=== PATIENT | male | born 1995 | race Caucasian/White ===

== ENCOUNTER 2022-01-20 13:00 | Outpatient (RCR) | payer OTHER, SELFPAY ==
--- NOTE | 2021-11-25 17:37 | PT.OIE ---
Current Diagnoses Malignant neoplasm of brain, unspecified (11/25/21) Visit Care Team Role Provider Type Sriram Bacon MD Attending Provider Non-Staff Family Provider Primary Care Provider Referring Provider Specialty: Medical Address: [facility], [address] [place] [address], [id number] Email: Physical Therapy Initial Evaluation PT-OP-A Visit Information Start: 11/24/21 08:34 Freq: Status: Active Protocol: Document 11/25/21 16:00 AW (Rec: 11/24/21 08:40 AW [id number]) Out-Patient Physical Therapy Visit Information Visit Information Visit Type Initial Evaluation Visit Start Time 15:15 Visit Stop Time 16:00 Total Visit Minutes 45 Visit Number 10/05 Number of 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 His gave to their second child in early September 2021. She had COVID at the time and Vinay contracted COVID soon after. He had a seizure at home in that time frame and does not recall the details. He was taken to [facility] by EMS. Brain imaging revealed a mass. Vinay was transported to [facility] but was admitted for observation only since he was still COVID positive. He went home and awaited surgery. He had right frontal lobe tumor resection on and discharged home on 10/14/21. He has not had any rehab. He has a lifting restriction of 10 pounds and he is not cleared to drive. Radiation was not recommended due to pt's age. Vinay notices he has been losing his balance since surgery. He has been close to falling a few times but has been able to catch himself. Attention and short-term memory seem challenged. He reports some visual and auditory hallucinations since surgery (last was 3 weeks ago) . He hears clicking 24/7 along the midline of his face. He has occasional blurry vision with a cloudy or smoky effect. He has tinnitus which is chronic but increased since surgery. He lives in [place] with his and their 2 children (22 months and 3 months) Today was his first day back to work. He is working full shifts but is on limited light duty. He played left tackle in high school and one year in college. He now enjoys golf and hopes to be able to golf soon. Future Testing and Treatments Planned 12/15/21 follow up with neurosurgery. CT at [facility] Treatment Goals Patient/Caregiver Goals Improve balance. Be able to golf 18 rounds. 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 Mentally demanding. Current Functional Impairments (Reported) Functional Limitations- Recreation/ Limited by neurosurgeon to Hobbies lifting 10 pounds. Difficulty with attention, organization, processing. PT-OP-C Subjective Start: 11/24/21 08:34 Freq: Status: Active Protocol: Document 11/25/21 16:00 AW (Rec: 11/25/21 17:45 AW [id number]) Patient Questionnaires ABC- Activity Specific Balance Confidence Scale ABC Score 79 ABC Functional Impairment 20 to <40% Impaired (Score 61- 80) Other Questionnaire Name and Score FACIT-F: 9 OP-PT Pain Assessment Pain Assessment Grid Paper Pain Assessment Grid Completed Yes: Scanned to EMR PT-OP-D Balance Start: 11/24/21 08:34 Freq: Status: Active Protocol: Document 11/25/21 16:00 AW (Rec: 11/25/21 17:51 AW [id number]) Balance Tests mCTSIB mCTSIB Position 1 30 mCTSIB Position 2 30 mCTSIB Position 3 27 mCTSIB Position 4 10 PT-OP-E Functional Tests Start: 11/24/21 08:34 Freq: Status: Active Protocol: Document 11/25/21 16:00 AW (Rec: 11/25/21 17:51 AW [id number]) Functional Tests Functional Gait Assessment Score 27 Functional Gait Assessment Impairment 1 to <20% Impaired (Score 25- Rating 29) PT-OP-H Neuro Start: 11/24/21 08:34 Freq: Status: Active Protocol: Document 11/25/21 16:00 AW (Rec: 11/25/21 17:51 AW [id number]) Sensation Evaluation Gross Sensation Gross Sensation WNL Coordination Evaluation Comments Coordination Comments All coordination testing WNL. Deep Tendon Reflex & Clonus Assessment Deep Tendon Reflex Bilateral Achilles Deep Tendon Reflex 2+ Normal Bilateral Patellar Deep Tendon Reflex 2+ Normal PT-OP-M Strength Start: 11/24/21 08:34 Freq: Status: Active Protocol: Document 11/25/21 16:00 AW (Rec: 11/25/21 17:51 AW [id number]) Hip Strength Hip Manual Muscle Testing bilat Flexion (L2) 5 Normal Extension (S1) 4+ Good+ Abduction 4+ Good+ External Rotation 5 Normal Internal Rotation 5 Normal Knee Strength Knee Manual Muscle Testing Right Flexion (S2) 5 Normal Extension (L3) 4+ Good+ Comments Pt reports right knee pain Left Flexion (S2) 5 Normal Extension (L3) 5 Normal Ankle/Foot Strength Ankle and Foot Manual Muscle Testing bilat Dorsiflexion (L4) 5 Normal Plantarflexion (S1) 5 Normal Inversion 5 Normal Eversion (S1) 5 Normal Toe Strength Toe Manual Muscle Testing Great Toe Flexion 5 Normal Extension 5 Normal PT-OP-O Vestibular Start: 11/24/21 08:34 Freq: Status: Active Protocol: Document 11/25/21 16:00 AW (Rec: 11/25/21 17:51 AW [id number]) Vestibular Assessment Visual Testing Smooth Pursuits Horizontal WNL Smooth Pursuits Vertical WNL Gaze Evoked Nystagmus With Fixation Negative Gaze Evoked Nystagmus Without Fixation Negative Thrust Head Positive Bilateral Cover/Uncover Test WNL Convergence Test WNL Comments Vestibular Comments Positive head thrust bilaterally and pt limited to 50 bpm head turning on gaze stabillization. PT-OP-Q Treatments Start: 11/24/21 08:34 Freq: Status: Active Protocol: Document 11/25/21 16:00 AW (Rec: 11/25/21 17:55 AW [id number]) Neuro Re-Education Treatment Vestibular Rehabilitation seated gaze stab Details seated gaze stabilization wtih head turns Distance From Target arm's length Speed 50 bpm Position seated Reps/Duration 30 seconds each Comments HEP Self-Care/Home Management Treatment Education Other Education Educated pt on balance inputs and systems integration. Explained exam findings and proposed plan of care with pt agreeable. Assigned seated gaze stab with head turns for HEP. PT-OP-T Assessment and Plan Start: 11/24/21 08:34 Freq: Status: Active Protocol: Document 11/25/21 16:00 AW (Rec: 11/25/21 17:59 AW [id number]) Physical Therapy Assessment Rehab Potential Rehabilitation Potential Good Evaluation Complexity Number of Personal Factors/Comorbidities 1-2 Number of Body Systems Impaired 3 Clinical Presentation at Evaluation Evolving Impairments Impairments Balance,Functional Activities, Vestibular Other Concerns Fall Risk low per FGA score 27/30 Goals Four Impairment VOR Care Home Goal (LTG) Pt will demonstrate gaze stabilization with head rotation at a rate of 2 Hz as a measure of improved vestibulo-ocular reflex to improve overall balance. LTG Duration 8 weeks - 01/20/22 Three Impairment ABC scale Care Home Goal (LTG) Pt will improve ABC score from 79% to 90% or greater as a measure of improved balance and self-efficacy. 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 Pt reports disturbed senses including hearing clicking in midline face and occasional cloudy or smoky vision. He has had some visual and auditory hallucinations since surgery. His pre- existing tinnitus has worsened . He scored 10 seconds on the fourth condition of mCTSIB. He had poor gaze stability with bilateral head thrust testing. He denies falls since surgery but does admit to losing balance and catching himself several times. Pt is expected to benefit from outpatient PT to address balance deficits, reduce risk of falls, and improve function at home and at work. Physical Therapy Plan Frequency and Duration Frequency of Treatment 1x/Week Duration of Treatment 8 weeks Plan of Care Start Date 11/25/21 Plan of Care End Date 01/20/22 Therapeutic Interventions Therapeutic Interventions Balance Training,Coordination Training,Home Exercise Program ,Neuromuscular Re-education, Self-Care/Home Management, Therapeutic Activities, Therapeutic Exercises, Vestibular Rehabilitation Other Referrals/Consults Referrals/Consults Recommended Pt may benefit from referral to speech therapy to assess cognition. Next Visit Focus/Plan Next Note Type Treatment Note Next Visit Plan Review HEP; initiate static and dynamic balance interventions
--- NOTE | 2021-11-25 17:38 | PT.OPPOC ---
Physical, Occupational & Speech Therapy At [facility] Current Diagnoses Malignant neoplasm of brain, unspecified (11/25/21) Visit Care Team Role Provider Type Sriram Bacon MD Attending Provider Non-Staff Family Provider Primary Care Provider Referring Provider Specialty: Medical Address: [address], [address] Email: Plan Of Care PT-OP-T Assessment and Plan Start: 11/24/21 08:34 Freq: Status: Active Protocol: Document 11/25/21 16:00 AW (Rec: 11/25/21 17:59 AW [id number]) Physical Therapy Assessment Rehab Potential Rehabilitation Potential Good Evaluation Complexity Number of Personal Factors/Comorbidities 1-2 Number of Body Systems Impaired 3 Clinical Presentation at Evaluation Evolving Impairments Impairments Balance,Functional Activities, Vestibular Other Concerns Fall Risk low per FGA score 27/30 Goals Four Impairment VOR Senior Living Goal (LTG) Pt will demonstrate gaze stabilization with head rotation at a rate of 2 Hz as a measure of improved vestibulo-ocular reflex to improve overall balance. LTG Duration 8 weeks - 01/20/22 Three Impairment ABC scale Senior Living Goal (LTG) Pt will improve ABC score from 79% to 90% or greater as a measure of improved balance and self-efficacy. 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 Pt reports disturbed senses including hearing clicking in midline face and occasional cloudy or smoky vision. He has had some visual and auditory hallucinations since surgery. His pre- existing tinnitus has worsened . He scored 10 seconds on the fourth condition of mCTSIB. He had poor gaze stability with bilateral head thrust testing. He denies falls since surgery but does admit to losing balance and catching himself several times. Pt is expected to benefit from outpatient PT to address balance deficits, reduce risk of falls, and improve function at home and at work. Physical Therapy Plan Frequency and Duration Frequency of Treatment 1x/Week Duration of Treatment 8 weeks Plan of Care Start Date 11/25/21 Plan of Care End Date 01/20/22 Therapeutic Interventions Therapeutic Interventions Balance Training,Coordination Training,Home Exercise Program ,Neuromuscular Re-education, Self-Care/Home Management, Therapeutic Activities, Therapeutic Exercises, Vestibular Rehabilitation Other Referrals/Consults Referrals/Consults Recommended Pt may benefit from referral to speech therapy to assess cognition. Next Visit Focus/Plan Next Note Type Treatment Note Next Visit Plan Review HEP; initiate static and dynamic balance interventions Plan of Care Dates Plan of Care Start Date 11/25/21 Plan of Care End Date 01/20/22 Electronically Signed by: Daniela Navarro, PT 11/26/21 [id number] Please Sign and Return: I have reviewed this Plan of Care and certify that the skilled therapy services above are required to meet the patient?s needs. Physician Signature Date Printed Name and Credentials Clinical Instructor Signature Printed Name and Credentials
--- NOTE | 2021-12-01 17:23 | PT.OTN ---
Current Diagnoses Malignant neoplasm of brain, unspecified (12/01/21) Physical Therapy Treatment Note PT-OP-A Visit Information Start: 11/24/21 08:34 Freq: Status: Active Protocol: Document 12/01/21 15:15 AW (Rec: 12/01/21 17:23 AW [id number]) Out-Patient Physical Therapy Visit Information Visit Information Visit Type Treatment Note Visit Start Time 15:15 Visit Stop Time 16:00 Total Visit Minutes 45 Visit Number 11/05 Number of CASTING ASSOCIATE Visits 0 Evaluation Information Evaluation Date 11/25/21 Precautions Precautions seizures, no lifting >10 pounds PT-OP-B Current Condition Start: 11/24/21 08:34 Freq: Status: Active Protocol: Document 11/25/21 16:00 AW (Rec: 11/24/21 08:40 AW [id number]) Current Condition History of Current Condition Onset Date 10/09/21 Current Complaints decreased balance s/p frontal lobe tumor (astrocytoma) resection History of Current Condition 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 She had COVID at the time and Vinay contracted COVID soon after. He had a seizure at home in that time frame and does not recall the details. He was taken to [facility] by EMS. Brain imaging revealed a mass. Vinay was transported to [facility] but was admitted for observation only since he was still COVID positive. He went home and awaited surgery. He had right frontal lobe tumor resection on and discharged home on 10/14/21. He has not had any rehab. He has a lifting restriction of 10 pounds and he is not cleared to drive. Radiation was not recommended due to pt's age. Vinay notices he has been losing his balance since surgery. He has been close to falling a few times but has been able to catch himself. Attention and short-term memory seem challenged. He reports some visual and auditory hallucinations since surgery (last was 3 weeks ago) . He hears clicking 24/7 along the midline of his face. He has occasional blurry vision with a cloudy or smoky effect. He has tinnitus which is chronic but increased since surgery. He lives in [place] with his and their 2 children (22 months and 3 months) Today was his first day back to work. He is working full shifts but is on limited light duty. He played left tackle in high school and one year in college. He now enjoys golf and hopes to be able to golf soon. Future Testing and Treatments Planned 12/15/21 follow up with neurosurgery. CT at [facility] Treatment Goals Patient/Caregiver Goals Improve balance. Be able to golf 18 rounds. 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 Mentally demanding. Current Functional Impairments (Reported) Functional Limitations- Recreation/ Limited by neurosurgeon to Hobbies lifting 10 pounds. Difficulty with attention, organization, processing. PT-OP-C Subjective Start: 11/24/21 08:34 Freq: Status: Active Protocol: Document 12/01/21 15:15 AW (Rec: 12/01/21 17:23 AW [id number]) OP-PT Subjective Patient Comments Patient Comments Will follow up with neurosurgeon on 12/15. Virtual appointment with oncology on . PT-OP-D Balance Start: 11/24/21 08:34 Freq: Status: Active Protocol: Document 11/25/21 16:00 AW (Rec: 11/25/21 17:51 AW [id number]) Balance Tests mCTSIB mCTSIB Position 1 30 mCTSIB Position 2 30 mCTSIB Position 3 27 mCTSIB Position 4 10 PT-OP-E Functional Tests Start: 11/24/21 08:34 Freq: Status: Active Protocol: Document 11/25/21 16:00 AW (Rec: 11/25/21 17:51 AW [id number]) Functional Tests Functional Gait Assessment Score 27 Functional Gait Assessment Impairment 1 to <20% Impaired (Score 25- Rating 29) PT-OP-H Neuro Start: 11/24/21 08:34 Freq: Status: Active Protocol: Document 11/25/21 16:00 AW (Rec: 11/25/21 17:51 AW [id number]) Sensation Evaluation Gross Sensation Gross Sensation WNL Coordination Evaluation Comments Coordination Comments All coordination testing WNL. Deep Tendon Reflex & Clonus Assessment Deep Tendon Reflex Bilateral Achilles Deep Tendon Reflex 2+ Normal Bilateral Patellar Deep Tendon Reflex 2+ Normal PT-OP-M Strength Start: 11/24/21 08:34 Freq: Status: Active Protocol: Document 11/25/21 16:00 AW (Rec: 11/25/21 17:51 AW [id number]) Hip Strength Hip Manual Muscle Testing bilat Flexion (L2) 5 Normal Extension (S1) 4+ Good+ Abduction 4+ Good+ External Rotation 5 Normal Internal Rotation 5 Normal Knee Strength Knee Manual Muscle Testing Right Flexion (S2) 5 Normal Extension (L3) 4+ Good+ Comments Pt reports right knee pain Left Flexion (S2) 5 Normal Extension (L3) 5 Normal Ankle/Foot Strength Ankle and Foot Manual Muscle Testing bilat Dorsiflexion (L4) 5 Normal Plantarflexion (S1) 5 Normal Inversion 5 Normal Eversion (S1) 5 Normal Toe Strength Toe Manual Muscle Testing Great Toe Flexion 5 Normal Extension 5 Normal PT-OP-O Vestibular Start: 11/24/21 08:34 Freq: Status: Active Protocol: Document 11/25/21 16:00 AW (Rec: 11/25/21 17:51 AW [id number]) Vestibular Assessment Visual Testing Smooth Pursuits Horizontal WNL Smooth Pursuits Vertical WNL Gaze Evoked Nystagmus With Fixation Negative Gaze Evoked Nystagmus Without Fixation Negative Thrust Head Positive Bilateral Cover/Uncover Test WNL Convergence Test WNL Comments Vestibular Comments Positive head thrust bilaterally and pt limited to 50 bpm head turning on gaze stabillization. PT-OP-Q Treatments Start: 11/24/21 08:34 Freq: Status: Active Protocol: Document 12/01/21 15:15 AW (Rec: 12/01/21 17:23 AW [id number]) Gym Equipment Shuttle Balance NBOS Details NBOS - red Reps/Duration 5 min Comments - WBOS EO and EC - NBOS EO and EC - NBOS EO with head turns, nods Therapeutic Exercises Standing Exercises gastroc stretch Standing Exercise Name gastroc stretch Equipment Used YASMINE Reps/Minutes after standing balance activities Other Exercises sit to stand Other Exercise Name sit to stand Reps/Minutes 2x10 - 2nd set with foam under feet Comments focus weight shift, balance Neuro Re-Education Treatment Balance Activities SLS Details SLS Surface firm Equipment rail support prn Comments HEP tandem Details tandem stance Surface firm, foam Equipment 2 airex pads Comments - EO with head turns, nods on firm and foam - EC with head turns, nods on firm and foam NBOS Details NBOS Surface firm, foam Equipment 2 blue foam Comments - EO with head turns, nods on firm and foam - EC with head turns, nods on firm and foam Vestibular Rehabilitation VOR cancellation Details VOR cancellation Distance From Target arm's length Speed 65 bpm Position seated Comments HEP seated gaze stab Details seated gaze stabilization with head turns Distance From Target arm's length Speed 65 bpm Position seated Reps/Duration 30 seconds each Comments HEP review; improved speed this week; attempted 75 bpm but letters were blurry Self-Care/Home Management Treatment Education Patient Education Home Exercise Program Other Education Added seated VOR cx, tandem stance with head turns, and SLS to HEP PT-OP-T Assessment and Plan Start: 11/24/21 08:34 Freq: Status: Active Protocol: Document 12/01/21 15:15 AW (Rec: 12/01/21 17:23 AW [id number]) Physical Therapy Assessment Goals Four Impairment VOR Assisted Goal (LTG) Pt will demonstrate gaze stabilization with head rotation at a rate of 2 Hz as a measure of improved vestibulo-ocular reflex to improve overall balance. LTG Duration 8 weeks - 01/20/22 Three Impairment ABC scale Furniture Installer Goal (LTG) Pt will improve ABC score from 79% to 90% or greater as a measure of improved balance and self-efficacy. LTG Duration 8 weeks - 01/20/22 Two Impairment balance Furniture Installer Goal (LTG) Pt will improve his mCTSIB score to 110 or greater as a measure of improved balance LTG Duration 8 weeks - 01/20/22 One Impairment lacks HEP Short Term Goal (STG) Pt will be instructed in HEP for balance to support therapy services provided in clinic STG Duration 4 weeks - 12/23/21 Assisted Goal (LTG) Pt will be independent [facility] for balance LTG Duration 8 weeks - 01/20/22 Assessment Summary Assessment Vinay shows good effort with all balance activities and is receptive to education. Added balance and vestibular work to HEP and will reassess at next visit. Sent request for speech therapy referral to pt' s physician. Physical Therapy Plan Frequency and Duration Frequency of Treatment 1x/Week Duration of Treatment 8 weeks Plan of Care Start Date 11/25/21 Plan of Care End Date 01/20/22 Therapeutic Interventions Therapeutic Interventions Balance Training,Coordination Training,Home Exercise Program ,Neuromuscular Re-education, Self-Care/Home Management, Therapeutic Activities, Therapeutic Exercises, Vestibular Rehabilitation Other Referrals/Consults Referrals/Consults Recommended Pt may benefit from referral to speech therapy to assess cognition. Next Visit Focus/Plan Next Note Type Treatment Note Next Visit Plan Review HEP; increase challenge in sit to stand, SLS. Consider core stab in sitting and standing. Consider agility work to improve balance.
--- NOTE | 2021-12-10 12:20 | PT.OTN ---
Current Diagnoses Malignant neoplasm of brain, unspecified (12/10/21) Physical Therapy Treatment Note PT-OP-A Visit Information Start: 11/24/21 08:34 Freq: Status: Active Protocol: Document 12/10/21 09:44 AW (Rec: 12/10/21 10:47 AW [id number]) Out-Patient Physical Therapy Visit Information Visit Information Visit Type Treatment Note Visit Start Time 09:45 Visit Stop Time 10:15 Total Visit Minutes 45 Visit Number 12/03 Evaluation Information Evaluation Date 11/25/21 Precautions Precautions seizures, no lifting >10 pounds PT-OP-B Current Condition Start: 11/24/21 08:34 Freq: Status: Active Protocol: Document 11/25/21 16:00 AW (Rec: 11/24/21 08:40 AW [id number]) Current Condition History of Current Condition Onset Date 10/09/21 Current Complaints decreased balance s/p frontal lobe tumor (astrocytoma) resection History of Current Condition 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 His gave to their second child in early September 2021. She had COVID at the time and Vinay contracted COVID soon after. He had a seizure at home in that time frame and does not recall the details. He was taken to [facility] by EMS. Brain imaging revealed a mass. Vinay was transported to [facility] but was admitted for observation only since he was still COVID positive. He went home and awaited surgery. He had right frontal lobe tumor resection on and discharged home on 10/14/21. He has not had any rehab. He has a lifting restriction of 10 pounds and he is not cleared to drive. Radiation was not recommended due to pt's age. Vinay notices he has been losing his balance since surgery. He has been close to falling a few times but has been able to catch himself. Attention and short-term memory seem challenged. He reports some visual and auditory hallucinations since surgery (last was 3 weeks ago) . He hears clicking 24/7 along the midline of his face. He has occasional blurry vision with a cloudy or smoky effect. He has tinnitus which is chronic but increased since surgery. He lives in [place] with his and their 2 children (22 months and 3 months) Today was his first day back to work. He is working full shifts but is on limited light duty. He played left tackle in high school and one year in college. He now enjoys golf and hopes to be able to golf soon. Future Testing and Treatments Planned 12/15/21 follow up with neurosurgery. CT at [facility] Treatment Goals Patient/Caregiver Goals Improve balance. Be able to golf 18 rounds. 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 Mentally demanding. Current Functional Impairments (Reported) Functional Limitations- Recreation/ Limited by neurosurgeon to Hobbies lifting 10 pounds. Difficulty with attention, organization, processing. PT-OP-C Subjective Start: 11/24/21 08:34 Freq: Status: Active Protocol: Document 12/10/21 09:44 AW (Rec: 12/10/21 10:47 AW [id number]) OP-PT Subjective Patient Comments Patient Comments Symptoms of microseizures noted recently: spacing out, stopping mid-task, hand tremors, HR spikes to 115 during tremors. Pt has been in touch with providers at [facility]. He has doubled his Keppra dose and notices increased fatigue. Follows up with oncology today and with neurosurgeon on 12/15. PT-OP-D Balance Start: 11/24/21 08:34 Freq: Status: Active Protocol: Document 11/25/21 16:00 AW (Rec: 11/25/21 17:51 AW [id number]) Balance Tests mCTSIB mCTSIB Position 1 30 mCTSIB Position 2 30 mCTSIB Position 3 27 mCTSIB Position 4 10 PT-OP-E Functional Tests Start: 11/24/21 08:34 Freq: Status: Active Protocol: Document 11/25/21 16:00 AW (Rec: 11/25/21 17:51 AW [id number]) Functional Tests Functional Gait Assessment Score 27 Functional Gait Assessment Impairment 1 to <20% Impaired (Score 25- Rating 29) PT-OP-H Neuro Start: 11/24/21 08:34 Freq: Status: Active Protocol: Document 11/25/21 16:00 AW (Rec: 11/25/21 17:51 AW [id number]) Sensation Evaluation Gross Sensation Gross Sensation WNL Coordination Evaluation Comments Coordination Comments All coordination testing WNL. Deep Tendon Reflex & Clonus Assessment Deep Tendon Reflex Bilateral Achilles Deep Tendon Reflex 2+ Normal Bilateral Patellar Deep Tendon Reflex 2+ Normal PT-OP-M Strength Start: 11/24/21 08:34 Freq: Status: Active Protocol: Document 11/25/21 16:00 AW (Rec: 11/25/21 17:51 AW [id number]) Hip Strength Hip Manual Muscle Testing bilat Flexion (L2) 5 Normal Extension (S1) 4+ Good+ Abduction 4+ Good+ External Rotation 5 Normal Internal Rotation 5 Normal Knee Strength Knee Manual Muscle Testing Right Flexion (S2) 5 Normal Extension (L3) 4+ Good+ Comments Pt reports right knee pain Left Flexion (S2) 5 Normal Extension (L3) 5 Normal Ankle/Foot Strength Ankle and Foot Manual Muscle Testing bilat Dorsiflexion (L4) 5 Normal Plantarflexion (S1) 5 Normal Inversion 5 Normal Eversion (S1) 5 Normal Toe Strength Toe Manual Muscle Testing Great Toe Flexion 5 Normal Extension 5 Normal PT-OP-O Vestibular Start: 11/24/21 08:34 Freq: Status: Active Protocol: Document 11/25/21 16:00 AW (Rec: 11/25/21 17:51 AW [id number]) Vestibular Assessment Visual Testing Smooth Pursuits Horizontal WNL Smooth Pursuits Vertical WNL Gaze Evoked Nystagmus With Fixation Negative Gaze Evoked Nystagmus Without Fixation Negative Thrust Head Positive Bilateral Cover/Uncover Test WNL Convergence Test WNL Comments Vestibular Comments Positive head thrust bilaterally and pt limited to 50 bpm head turning on gaze stabillization. PT-OP-Q Treatments Start: 11/24/21 08:34 Freq: Status: Active Protocol: Document 12/10/21 09:44 AW (Rec: 12/10/21 10:47 AW [id number]) Therapeutic Exercises Standing Exercises lateral band walk Standing Exercise Name lateral band walk Side bilateral Resistance red loop Comments HEP - issued TB3 for loop Other Exercises sit to stand Other Exercise Name sit to stand Reps/Minutes 3x10 - 2nd set with foam under feet Comments firm surface, foam, rocker board Neuro Re-Education Treatment Balance Activities dynamic gait Details dynamic gait Surface firm Reps/Duration 100' x 10 Comments - head turns - head nods - tandem walking - backward walking SLS Details SLS Surface firm Equipment rail support prn Comments HEP tandem Details tandem stance Surface firm, foam Equipment 2 airex pads Comments - EO with head turns, nods on firm and foam - EC with head turns, nods on firm and foam Coordination Activities grapevine Details grapevine Reps/Duration 20' lap x 8 Comments Pt able to increase speed without pattern degradation Vestibular Rehabilitation VOR cancellation Details VOR cancellation Distance From Target arm's length Speed 70 bpm Position seated Comments HEP seated gaze stab Details seated gaze stabilization with head turns Distance From Target arm's length Speed 70 bpm Position seated Reps/Duration 30 seconds each Comments -70 ok - attempted 75 bpm but letters were blurry Self-Care/Home Management Treatment Education Patient Education Home Exercise Program Other Education Added lateral band walk to HEP to address hip drop in gait and SLS PT-OP-T Assessment and Plan Start: 11/24/21 08:34 Freq: Status: Active Protocol: Document 12/10/21 09:44 AW (Rec: 12/10/21 10:47 AW [id number]) Physical Therapy Assessment Goals Four Impairment VOR Residential Goal (LTG) Pt will demonstrate gaze stabilization with head rotation at a rate of 2 Hz as a measure of improved vestibulo-ocular reflex to improve overall balance. LTG Duration 8 weeks - 01/20/22 Three Impairment ABC scale Residential Goal (LTG) Pt will improve ABC score from 79% to 90% or greater as a measure of improved balance and self-efficacy. LTG Duration 8 weeks - 01/20/22 Two Impairment balance Stringed Instrument Repairer Goal (LTG) Pt will improve his mCTSIB score to 110 or greater as a measure of improved balance LTG Duration 8 weeks - 01/20/22 One Impairment lacks HEP Short Term Goal (STG) Pt will be instructed in HEP for balance to support therapy services provided in clinic STG Duration 4 weeks - 12/23/21 Residential Goal (LTG) Pt will be independent [facility] HEP for balance LTG Duration 8 weeks - 01/20/22 Assessment Summary Assessment Vinay presents with concerns for recent microseizure activity. He has doubled his Keppra dosage at the direction of providers at [facility]. No neuro symptoms noted during treatment today which focused on dynamic balance and coordination. Will plan to add cognitive load to dynamic balance activities at next visit. Will follow up on referral for speech therapy. Physical Therapy Plan Frequency and Duration Frequency of Treatment 1x/Week Duration of Treatment 8 weeks Plan of Care Start Date 11/25/21 Plan of Care End Date 01/20/22 Therapeutic Interventions Therapeutic Interventions Balance Training,Coordination Training,Home Exercise Program ,Neuromuscular Re-education, Self-Care/Home Management, Therapeutic Activities, Therapeutic Exercises, Vestibular Rehabilitation Other Referrals/Consults Referrals/Consults Recommended Spoke with Dr. Bacon who initiated speech referral. Next Visit Focus/Plan Next Note Type Treatment Note Next Visit Plan Review HEP; increase challenge in sit to stand, SLS. Progress core stab in sitting and standing. Consider agility work to improve balance. Add cognitive load and dual task to dynamic balance work.
--- NOTE | 2021-12-31 15:13 | PT.OTN ---
Current Diagnoses Malignant neoplasm of brain, unspecified (12/31/21) Physical Therapy Treatment Note PT-OP-A Visit Information Start: 11/24/21 08:34 Freq: Status: Active Protocol: Document 12/31/21 14:30 DCW (Rec: 12/31/21 15:13 DCW [id number]) Out-Patient Physical Therapy Visit Information Visit Information Visit Type Treatment Note Visit Start Time 14:30 Visit Stop Time 15:15 Total Visit Minutes 45 Visit Number 01/03 Number of INFANT TEACHER Visits 0 Evaluation Information Evaluation Date 11/25/21 Precautions Precautions seizures, no lifting >10 pounds PT-OP-B Current Condition Start: 11/24/21 08:34 Freq: Status: Active Protocol: Document 11/25/21 16:00 AW (Rec: 11/24/21 08:40 AW [id number]) Current Condition History of Current Condition Onset Date 10/09/21 Current Complaints decreased balance s/p frontal lobe tumor (astrocytoma) resection History of Current Condition 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 She had COVID at the time and Vinay contracted COVID soon after. He had a seizure at home in that time frame and does not recall the details. He was taken to [facility] by EMS. Brain imaging revealed a mass. Vinay was transported to [facility] but was admitted for observation only since he was still COVID positive. He went home and awaited surgery. He had right frontal lobe tumor resection on and discharged home on 10/14/21. He has not had any rehab. He has a lifting restriction of 10 pounds and he is not cleared to drive. Radiation was not recommended due to pt's age. Vinay notices he has been losing his balance since surgery. He has been close to falling a few times but has been able to catch himself. Attention and short-term memory seem challenged. He reports some visual and auditory hallucinations since surgery (last was 3 weeks ago) . He hears clicking 24/7 along the midline of his face. He has occasional blurry vision with a cloudy or smoky effect. He has tinnitus which is chronic but increased since surgery. He lives in [place] with his and their 2 children (22 months and 3 months) Today was his first day back to work. He is working full shifts but is on limited light duty. He played left tackle in high school and one year in college. He now enjoys golf and hopes to be able to golf soon. Future Testing and Treatments Planned 12/15/21 follow up with neurosurgery. CT at [facility] Treatment Goals Patient/Caregiver Goals Improve balance. Be able to golf 18 rounds. 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 Mentally demanding. Current Functional Impairments (Reported) Functional Limitations- Recreation/ Limited by neurosurgeon to Hobbies lifting 10 pounds. Difficulty with attention, organization, processing. PT-OP-C Subjective Start: 11/24/21 08:34 Freq: Status: Active Protocol: Document 12/31/21 14:30 DCW (Rec: 12/31/21 15:13 DCW [id number]) OP-PT Subjective Patient Comments Patient Comments Upped Kepra, not noticing microseizures as much any more , balance seems to be improving, trying to take it one day at a time. Will be getting a new MRI February 18. PT-OP-D Balance Start: 11/24/21 08:34 Freq: Status: Active Protocol: Document 11/25/21 16:00 AW (Rec: 11/25/21 17:51 AW [id number]) Balance Tests mCTSIB mCTSIB Position 1 30 mCTSIB Position 2 30 mCTSIB Position 3 27 mCTSIB Position 4 10 PT-OP-E Functional Tests Start: 11/24/21 08:34 Freq: Status: Active Protocol: Document 11/25/21 16:00 AW (Rec: 11/25/21 17:51 AW [id number]) Functional Tests Functional Gait Assessment Score 27 Functional Gait Assessment Impairment 1 to <20% Impaired (Score 25- Rating 29) PT-OP-H Neuro Start: 11/24/21 08:34 Freq: Status: Active Protocol: Document 11/25/21 16:00 AW (Rec: 11/25/21 17:51 AW [id number]) Sensation Evaluation Gross Sensation Gross Sensation WNL Coordination Evaluation Comments Coordination Comments All coordination testing WNL. Deep Tendon Reflex & Clonus Assessment Deep Tendon Reflex Bilateral Achilles Deep Tendon Reflex 2+ Normal Bilateral Patellar Deep Tendon Reflex 2+ Normal PT-OP-M Strength Start: 11/24/21 08:34 Freq: Status: Active Protocol: Document 11/25/21 16:00 AW (Rec: 11/25/21 17:51 AW [id number]) Hip Strength Hip Manual Muscle Testing bilat Flexion (L2) 5 Normal Extension (S1) 4+ Good+ Abduction 4+ Good+ External Rotation 5 Normal Internal Rotation 5 Normal Knee Strength Knee Manual Muscle Testing Right Flexion (S2) 5 Normal Extension (L3) 4+ Good+ Comments Pt reports right knee pain Left Flexion (S2) 5 Normal Extension (L3) 5 Normal Ankle/Foot Strength Ankle and Foot Manual Muscle Testing bilat Dorsiflexion (L4) 5 Normal Plantarflexion (S1) 5 Normal Inversion 5 Normal Eversion (S1) 5 Normal Toe Strength Toe Manual Muscle Testing Great Toe Flexion 5 Normal Extension 5 Normal PT-OP-O Vestibular Start: 11/24/21 08:34 Freq: Status: Active Protocol: Document 11/25/21 16:00 AW (Rec: 11/25/21 17:51 AW [id number]) Vestibular Assessment Visual Testing Smooth Pursuits Horizontal WNL Smooth Pursuits Vertical WNL Gaze Evoked Nystagmus With Fixation Negative Gaze Evoked Nystagmus Without Fixation Negative Thrust Head Positive Bilateral Cover/Uncover Test WNL Convergence Test WNL Comments Vestibular Comments Positive head thrust bilaterally and pt limited to 50 bpm head turning on gaze stabillization. PT-OP-Q Treatments Start: 11/24/21 08:34 Freq: Status: Active Protocol: Document 12/31/21 14:30 DCW (Rec: 12/31/21 15:13 DCW [id number]) Gym Equipment Shuttle Balance NBOS Details NBOS - red Reps/Duration 5 min Comments - WBOS EO and EC, head turns/ nods - Staggered Stance - Lateral weight shift Therapeutic Exercises Standing Exercises hip hiking Standing Exercise Name Hip hiking Side bilateral Neuro Re-Education Treatment Balance Activities dynamic gait Details dynamic gait Surface firm Reps/Duration 100' x 10 Comments - head turns - head nods - tandem walking - backward walking - eyes closed walking SLS Details SLS Surface firm Comments HEP tandem Details tandem stance Surface firm, foam Equipment 2 airex pads Comments - EO with head turns, nods on firm and foam - EC with head turns, nods on firm and foam NBOS Details NBOS Surface Blue BOSU Comments EO/EC Vestibular Rehabilitation seated gaze stab Details seated gaze stabilization with head turns Distance From Target arm's length Speed 70 bpm Position seated Reps/Duration 30 seconds each Comments -70 ok - attempted 75 bpm but letters were blurry PT-OP-T Assessment and Plan Start: 11/24/21 08:34 Freq: Status: Active Protocol: Document 12/31/21 14:30 DCW (Rec: 12/31/21 15:13 DCW [id number]) Physical Therapy Assessment Goals Four Impairment VOR Thermal Cutting Tracer Machine Operator Goal (LTG) Pt will demonstrate gaze stabilization with head rotation at a rate of 2 Hz as a measure of improved vestibulo-ocular reflex to improve overall balance. LTG Duration 8 weeks - 01/20/22 Three Impairment ABC scale Mcfp Goal (LTG) Pt will improve ABC score from 79% to 90% or greater as a measure of improved balance and self-efficacy. LTG Duration 8 weeks - 01/20/22 Two Impairment balance Thermal Cutting Tracer Machine Operator Goal (LTG) Pt will improve his mCTSIB score to 110 or greater as a measure of improved balance LTG Duration 8 weeks - 01/20/22 One Impairment lacks HEP Short Term Goal (STG) Pt will be instructed in HEP for balance to support therapy services provided in clinic STG Duration 4 weeks - 12/23/21 Thermal Cutting Tracer Machine Operator Goal (LTG) Pt will be independent [facility] HEP for balance LTG Duration 8 weeks - 01/20/22 Assessment Summary Assessment Pt appears to be making great progress with change in medications. Able to fully participate in all activities, minimal challenges, did struggle a bit more with BOSU eyes closed, is getting in for speech therapy next month. Physical Therapy Plan Frequency and Duration Frequency of Treatment 1x/Week Duration of Treatment 8 weeks Plan of Care Start Date 11/25/21 Plan of Care End Date 01/20/22 Therapeutic Interventions Therapeutic Interventions Balance Training,Coordination Training,Home Exercise Program ,Neuromuscular Re-education, Self-Care/Home Management, Therapeutic Activities, Therapeutic Exercises, Vestibular Rehabilitation Other Referrals/Consults Referrals/Consults Recommended Spoke with Dr. Bacon who initiated speech referral. Next Visit Focus/Plan Next Note Type Treatment Note Next Visit Plan Review HEP; increase challenge in sit to stand, SLS. Progress core stab in sitting and standing. Consider agility work to improve balance. Add cognitive load and dual task to dynamic balance work.
--- NOTE | 2022-01-06 13:45 | PT.OTN ---
Current Diagnoses Malignant neoplasm of brain, unspecified (01/06/22) Physical Therapy Treatment Note PT-OP-A Visit Information Start: 11/24/21 08:34 Freq: Status: Active Protocol: Document 01/06/22 13:01 AW (Rec: 01/06/22 13:45 AW [id number]) Out-Patient Physical Therapy Visit Information Visit Information Visit Type Treatment Note Visit Start Time 13:00 Visit Stop Time 13:45 Total Visit Minutes 45 Visit Number 02/02 Number of STOCK GRADER Visits 0 Evaluation Information Evaluation Date 11/25/21 Precautions Precautions seizures, no lifting >10 pounds PT-OP-B Current Condition Start: 11/24/21 08:34 Freq: Status: Active Protocol: Document 11/25/21 16:00 AW (Rec: 11/24/21 08:40 AW [id number]) Current Condition History of Current Condition Onset Date 10/09/21 Current Complaints decreased balance s/p frontal lobe tumor (astrocytoma) resection History of Current Condition 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 His gave to their second child in early September 2021. She had COVID at the time and Vinay contracted COVID soon after. He had a seizure at home in that time frame and does not recall the details. He was taken to [facility] by EMS. Brain imaging revealed a mass. Vinay was transported to [facility] but was admitted for observation only since he was still COVID positive. He went home and awaited surgery. He had right frontal lobe tumor resection on and discharged home on 10/14/21. He has not had any rehab. He has a lifting restriction of 10 pounds and he is not cleared to drive. Radiation was not recommended due to pt's age. Vinay notices he has been losing his balance since surgery. He has been close to falling a few times but has been able to catch himself. Attention and short-term memory seem challenged. He reports some visual and auditory hallucinations since surgery (last was 3 weeks ago) . He hears clicking 24/7 along the midline of his face. He has occasional blurry vision with a cloudy or smoky effect. He has tinnitus which is chronic but increased since surgery. He lives in [place] with his and their 2 children (22 months and 3 months) Today was his first day back to work. He is working full shifts but is on limited light duty. He played left tackle in high school and one year in college. He now enjoys golf and hopes to be able to golf soon. Future Testing and Treatments Planned 12/15/21 follow up with neurosurgery. CT at [facility] Treatment Goals Patient/Caregiver Goals Improve balance. Be able to golf 18 rounds. 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 Mentally demanding. Current Functional Impairments (Reported) Functional Limitations- Recreation/ Limited by neurosurgeon to Hobbies lifting 10 pounds. Difficulty with attention, organization, processing. PT-OP-C Subjective Start: 11/24/21 08:34 Freq: Status: Active Protocol: Document 01/06/22 13:01 AW (Rec: 01/06/22 13:45 AW [id number]) OP-PT Subjective Patient Comments Patient Comments Seizure activity greatly reduced. Pt still notices left hand tremors with no clear pattern and does admit to forgetfulness which is unusual for him. PT-OP-D Balance Start: 11/24/21 08:34 Freq: Status: Active Protocol: Document 11/25/21 16:00 AW (Rec: 11/25/21 17:51 AW [id number]) Balance Tests mCTSIB mCTSIB Position 1 30 mCTSIB Position 2 30 mCTSIB Position 3 27 mCTSIB Position 4 10 PT-OP-E Functional Tests Start: 11/24/21 08:34 Freq: Status: Active Protocol: Document 11/25/21 16:00 AW (Rec: 11/25/21 17:51 AW [id number]) Functional Tests Functional Gait Assessment Score 27 Functional Gait Assessment Impairment 1 to <20% Impaired (Score 25- Rating 29) PT-OP-H Neuro Start: 11/24/21 08:34 Freq: Status: Active Protocol: Document 11/25/21 16:00 AW (Rec: 11/25/21 17:51 AW [id number]) Sensation Evaluation Gross Sensation Gross Sensation WNL Coordination Evaluation Comments Coordination Comments All coordination testing WNL. Deep Tendon Reflex & Clonus Assessment Deep Tendon Reflex Bilateral Achilles Deep Tendon Reflex 2+ Normal Bilateral Patellar Deep Tendon Reflex 2+ Normal PT-OP-M Strength Start: 03/15/22 08:34 Freq: Status: Active Protocol: Document 11/25/21 16:00 AW (Rec: 11/25/21 17:51 AW [id number]) Hip Strength Hip Manual Muscle Testing bilat Flexion (L2) 5 Normal Extension (S1) 4+ Good+ Abduction 4+ Good+ External Rotation 5 Normal Internal Rotation 5 Normal Knee Strength Knee Manual Muscle Testing Right Flexion (S2) 5 Normal Extension (L3) 4+ Good+ Comments Pt reports right knee pain Left Flexion (S2) 5 Normal Extension (L3) 5 Normal Ankle/Foot Strength Ankle and Foot Manual Muscle Testing bilat Dorsiflexion (L4) 5 Normal Plantarflexion (S1) 5 Normal Inversion 5 Normal Eversion (S1) 5 Normal Toe Strength Toe Manual Muscle Testing Great Toe Flexion 5 Normal Extension 5 Normal PT-OP-O Vestibular Start: 11/24/21 08:34 Freq: Status: Active Protocol: Document 11/25/21 16:00 AW (Rec: 11/25/21 17:51 AW [id number]) Vestibular Assessment Visual Testing Smooth Pursuits Horizontal WNL Smooth Pursuits Vertical WNL Gaze Evoked Nystagmus With Fixation Negative Gaze Evoked Nystagmus Without Fixation Negative Thrust Head Positive Bilateral Cover/Uncover Test WNL Convergence Test WNL Comments Vestibular Comments Positive head thrust bilaterally and pt limited to 50 bpm head turning on gaze stabillization. PT-OP-Q Treatments Start: 11/24/21 08:34 Freq: Status: Active Protocol: Document 01/06/22 13:01 AW (Rec: 01/06/22 13:45 AW [id number]) Gym Equipment Shuttle Balance NBOS Details NBOS - red Reps/Duration 8 min Comments - WBOS EO and EC, head turns/ nods - Staggered Stance - Lateral weight shift - mini squats Therapeutic Exercises Standing Exercises paloff press Standing Exercise Name paloff press Side bilateral Resistance TB1 Comments 1 set DL, 1 set SL Other Exercises sit to stand Other Exercise Name squat tap Equipment Used 16 block, airex pads under feet Reps/Minutes 1x10, 2x20 Comments firm surface, foam Neuro Re-Education Treatment Balance Activities dynamic gait Details dynamic gait with cog load Surface firm Reps/Duration 100' x 20 Comments COG LOAD EACH CONDITION: counting backward by 3's, alphabet grocery game - head turns - head nods - tandem walking - backward walking - eyes closed walking SLS Details SLS Surface firm Comments - unperturbed - with paloff press PT-OP-T Assessment and Plan Start: 11/24/21 08:34 Freq: Status: Active Protocol: Document 01/06/22 13:01 AW (Rec: 01/06/22 13:45 AW [id number]) Physical Therapy Assessment Goals Four Impairment VOR Master Esthetician Goal (LTG) Pt will demonstrate gaze stabilization with head rotation at a rate of 2 Hz as a measure of improved vestibulo-ocular reflex to improve overall balance. LTG Duration 8 weeks - 01/20/22 Three Impairment ABC scale Master Esthetician Goal (LTG) Pt will improve ABC score from 79% to 90% or greater as a measure of improved balance and self-efficacy. LTG Duration 8 weeks - 01/20/22 Two Impairment balance Custodial Goal (LTG) Pt will improve his mCTSIB score to 110 or greater as a measure of improved balance LTG Duration 8 weeks - 01/20/22 One Impairment lacks HEP Short Term Goal (STG) Pt will be instructed in HEP for balance to support therapy services provided in clinic STG Duration 4 weeks - 12/23/21 Custodial Goal (LTG) Pt will be independent [facility] HEP for balance LTG Duration 8 weeks - 01/20/22 Assessment Summary Assessment Pt is challenged with cognitive loading during dynamic gait. Plan to continue with increased load to improve stability. Physical Therapy Plan Frequency and Duration Frequency of Treatment 1x/Week Duration of Treatment 8 weeks Plan of Care Start Date 11/25/21 Plan of Care End Date 01/20/22 Therapeutic Interventions Therapeutic Interventions Balance Training,Coordination Training,Home Exercise Program ,Neuromuscular Re-education, Self-Care/Home Management, Therapeutic Activities, Therapeutic Exercises, Vestibular Rehabilitation Other Referrals/Consults Referrals/Consults Recommended ST starting mid-January
--- NOTE | 2022-01-13 14:36 | PT.OTN ---
Current Diagnoses Malignant neoplasm of brain, unspecified (01/13/22) Physical Therapy Treatment Note PT-OP-A Visit Information Start: 11/24/21 08:34 Freq: Status: Active Protocol: Document 01/13/22 13:01 AW (Rec: 01/13/22 13:48 AW [id number]) Out-Patient Physical Therapy Visit Information Visit Information Visit Type Treatment Note Visit Note Pt arrived late Visit Start Time 13:15 Visit Stop Time 13:45 Total Visit Minutes 30 Visit Number 03/05 Number of MINI SHIFTER Visits 0 Precautions Precautions seizures, no lifting >10 pounds PT-OP-B Current Condition Start: 11/24/21 08:34 Freq: Status: Active Protocol: Document 11/25/21 16:00 AW (Rec: 11/24/21 08:40 AW [id number]) Current Condition History of Current Condition Onset Date 10/09/21 Current Complaints decreased balance s/p frontal lobe tumor (astrocytoma) resection History of Current Condition 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 She had COVID at the time and Vinay contracted COVID soon after. He had a seizure at home in that time frame and does not recall the details. He was taken to [facility] by EMS. Brain imaging revealed a mass. Vinay was transported to [facility] but was admitted for observation only since he was still COVID positive. He went home and awaited surgery. He had right frontal lobe tumor resection on and discharged home on 10/14/21. He has not had any rehab. He has a lifting restriction of 10 pounds and he is not cleared to drive. Radiation was not recommended due to pt's age. Vinay notices he has been losing his balance since surgery. He has been close to falling a few times but has been able to catch himself. Attention and short-term memory seem challenged. He reports some visual and auditory hallucinations since surgery (last was 3 weeks ago) . He hears clicking 24/7 along the midline of his face. He has occasional blurry vision with a cloudy or smoky effect. He has tinnitus which is chronic but increased since surgery. He lives in [place] with his and their 2 children (22 months and 3 months) Today was his first day back to work. He is working full shifts but is on limited light duty. He played left tackle in high school and one year in college. He now enjoys golf and hopes to be able to golf soon. Future Testing and Treatments Planned 12/15/21 follow up with neurosurgery. CT at [facility] Treatment Goals Patient/Caregiver Goals Improve balance. Be able to golf 18 rounds. 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 Mentally demanding. Current Functional Impairments (Reported) Functional Limitations- Recreation/ Limited by neurosurgeon to Hobbies lifting 10 pounds. Difficulty with attention, organization, processing. PT-OP-C Subjective Start: 11/24/21 08:34 Freq: Status: Active Protocol: Document 01/13/22 13:01 AW (Rec: 01/13/22 13:48 AW [id number]) OP-PT Subjective Patient Comments Patient Comments Vinay still has some left hand tremors but is otherwise doing well. He has added vitamin supplements to his Keppra with good effect. PT-OP-D Balance Start: 11/24/21 08:34 Freq: Status: Active Protocol: Document 11/25/21 16:00 AW (Rec: 11/25/21 17:51 AW [id number]) Balance Tests mCTSIB mCTSIB Position 1 30 mCTSIB Position 2 30 mCTSIB Position 3 27 mCTSIB Position 4 10 PT-OP-E Functional Tests Start: 11/24/21 08:34 Freq: Status: Active Protocol: Document 11/25/21 16:00 AW (Rec: 11/25/21 17:51 AW [id number]) Functional Tests Functional Gait Assessment Score 27 Functional Gait Assessment Impairment 1 to <20% Impaired (Score 25- Rating 29) PT-OP-H Neuro Start: 11/24/21 08:34 Freq: Status: Active Protocol: Document 11/25/21 16:00 AW (Rec: 11/25/21 17:51 AW [id number]) Sensation Evaluation Gross Sensation Gross Sensation WNL Coordination Evaluation Comments Coordination Comments All coordination testing WNL. Deep Tendon Reflex & Clonus Assessment Deep Tendon Reflex Bilateral Achilles Deep Tendon Reflex 2+ Normal Bilateral Patellar Deep Tendon Reflex 2+ Normal PT-OP-M Strength Start: 11/24/21 08:34 Freq: Status: Active Protocol: Document 11/25/21 16:00 AW (Rec: 11/25/21 17:51 AW [id number]) Hip Strength Hip Manual Muscle Testing bilat Flexion (L2) 5 Normal Extension (S1) 4+ Good+ Abduction 4+ Good+ External Rotation 5 Normal Internal Rotation 5 Normal Knee Strength Knee Manual Muscle Testing Right Flexion (S2) 5 Normal Extension (L3) 4+ Good+ Comments Pt reports right knee pain Left Flexion (S2) 5 Normal Extension (L3) 5 Normal Ankle/Foot Strength Ankle and Foot Manual Muscle Testing bilat Dorsiflexion (L4) 5 Normal Plantarflexion (S1) 5 Normal Inversion 5 Normal Eversion (S1) 5 Normal Toe Strength Toe Manual Muscle Testing Great Toe Flexion 5 Normal Extension 5 Normal PT-OP-O Vestibular Start: 11/24/21 08:34 Freq: Status: Active Protocol: Document 11/25/21 16:00 AW (Rec: 11/25/21 17:51 AW [id number]) Vestibular Assessment Visual Testing Smooth Pursuits Horizontal WNL Smooth Pursuits Vertical WNL Gaze Evoked Nystagmus With Fixation Negative Gaze Evoked Nystagmus Without Fixation Negative Thrust Head Positive Bilateral Cover/Uncover Test WNL Convergence Test WNL Comments Vestibular Comments Positive head thrust bilaterally and pt limited to 50 bpm head turning on gaze stabillization. PT-OP-Q Treatments Start: 11/24/21 08:34 Freq: Status: Active Protocol: Document 01/13/22 13:01 AW (Rec: 01/13/22 13:48 AW [id number]) Gym Equipment Shuttle Balance NBOS Details NBOS - red Reps/Duration 8 min Comments - WBOS EO and EC, head turns/ nods - Staggered Stance - Lateral weight shift - 90 degree squats Therapeutic Exercises Other Exercises sit to stand Other Exercise Name squat tap Equipment Used 16 block, airex pads under feet Reps/Minutes 1x10, 2x20 Comments firm surface, foam Neuro Re-Education Treatment Balance Activities dynamic gait Details dynamic gait with cog load Surface firm Reps/Duration 100' x 20 Comments COG LOAD EACH CONDITION: counting backward by 3's, alphabet grocery game - head turns - head nods - tandem walking - backward walking - eyes closed walking - changes in speed NBOS Details NBOS Surface Blue BOSU Comments - EO/EC - fwd lunge with fore foot on bosu - step ups Coordination Activities grapevine Details grapevine Reps/Duration 20' lap x 8 Comments Pt able to increase speed without pattern degradation. Added cog load PT-OP-T Assessment and Plan Start: 11/24/21 08:34 Freq: Status: Active Protocol: Document 01/13/22 13:01 AW (Rec: 01/13/22 13:48 AW [id number]) Physical Therapy Assessment Goals Four Impairment VOR Fci Goal (LTG) Pt will demonstrate gaze stabilization with head rotation at a rate of 2 Hz as a measure of improved vestibulo-ocular reflex to improve overall balance. LTG Duration 8 weeks - 01/20/22 Three Impairment ABC scale Other Sales Support Worker Goal (LTG) Pt will improve ABC score from 79% to 90% or greater as a measure of improved balance and self-efficacy. LTG Duration 8 weeks - 01/20/22 Two Impairment balance Fci Goal (LTG) Pt will improve his mCTSIB score to 110 or greater as a measure of improved balance LTG Duration 8 weeks - 01/20/22 One Impairment lacks HEP Short Term Goal (STG) Pt will be instructed in HEP for balance to support therapy services provided in clinic STG Duration 4 weeks - 12/23/21 Fci Goal (LTG) Pt will be independent [facility] HEP for balance LTG Duration 8 weeks - 01/20/22 Assessment Summary Assessment Pt doing very well with increased cognitive load. Single leg stance remains challenging especially on uneven surfaces. Likely to discharge next visit to focus on speech therapy. Physical Therapy Plan Frequency and Duration Frequency of Treatment 1x/Week Duration of Treatment 8 weeks Plan of Care Start Date 11/25/21 Plan of Care End Date 01/20/22 Therapeutic Interventions Therapeutic Interventions Balance Training,Coordination Training,Home Exercise Program ,Neuromuscular Re-education, Self-Care/Home Management, Therapeutic Activities, Therapeutic Exercises, Vestibular Rehabilitation Other Referrals/Consults Referrals/Consults Recommended ST starting mid-May Next Visit Focus/Plan Next Note Type Discharge Summary Next Visit Plan Review HEP; increase challenge in sit to stand, SLS. Progress core stab in sitting and standing. Consider agility work to improve balance. Add cognitive load and dual task to dynamic balance work.
--- NOTE | 2022-01-20 14:40 | PT.OPDS ---
Current Diagnoses Malignant neoplasm of brain, unspecified (01/20/22) Visit Care Team Role Provider Type Sriram Bacon MD Attending Provider Non-Staff Family Provider Primary Care Provider Referring Provider Specialty: Medical Address: [facility], [address] [place] [address], [id number] Email: Visit Number Visit Number 04/04 Discharge Summary PT-OP-B Current Condition Start: 11/24/21 08:34 Freq: Status: Active Protocol: Document 11/25/21 16:00 AW (Rec: 11/24/21 08:40 AW [id number]) Current Condition History of Current Condition Onset Date 10/09/21 Current Complaints decreased balance s/p frontal lobe tumor (astrocytoma) resection History of Current Condition 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 She had COVID at the time and Vinay contracted COVID soon after. He had a seizure at home in that time frame and does not recall the details. He was taken to [facility] by EMS. Brain imaging revealed a mass. Vinay was transported to [facility] but was admitted for observation only since he was still COVID positive. He went home and awaited surgery. He had right frontal lobe tumor resection on and discharged home on 10/14/21. He has not had any rehab. He has a lifting restriction of 10 pounds and he is not cleared to drive. Radiation was not recommended due to pt's age. Vinay notices he has been losing his balance since surgery. He has been close to falling a few times but has been able to catch himself. Attention and short-term memory seem challenged. He reports some visual and auditory hallucinations since surgery (last was 3 weeks ago) . He hears clicking 24/7 along the midline of his face. He has occasional blurry vision with a cloudy or smoky effect. He has tinnitus which is chronic but increased since surgery. He lives in [place] with his and their 2 children (22 months and 3 months) Today was his first day back to work. He is working full shifts but is on limited light duty. He played left tackle in high school and one year in college. He now enjoys golf and hopes to be able to golf soon. Future Testing and Treatments Planned 12/15/21 follow up with neurosurgery. CT at [facility] Treatment Goals Patient/Caregiver Goals Improve balance. Be able to golf 18 rounds. 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 Mentally demanding. Current Functional Impairments (Reported) Functional Limitations- Recreation/ Limited by neurosurgeon to Hobbies lifting 10 pounds. Difficulty with attention, organization, processing. PT-OP-C Subjective Start: 11/24/21 08:34 Freq: Status: Active Protocol: Document 01/20/22 13:04 AW (Rec: 01/20/22 14:37 AW [id number]) OP-PT Subjective Patient Comments Patient Comments Vinay arrives late today. Went golfing over the weekend. Rode in the cart but did not struggle with uneven surface. PT-OP-D Balance Start: 11/24/21 08:34 Freq: Status: Active Protocol: Document 11/25/21 16:00 AW (Rec: 11/25/21 17:51 AW [id number]) Balance Tests mCTSIB mCTSIB Position 1 30 mCTSIB Position 2 30 mCTSIB Position 3 27 mCTSIB Position 4 10 PT-OP-E Functional Tests Start: 11/24/21 08:34 Freq: Status: Active Protocol: Document 11/25/21 16:00 AW (Rec: 11/25/21 17:51 AW [id number]) Functional Tests Functional Gait Assessment Score 27 Functional Gait Assessment Impairment 1 to <20% Impaired (Score 25- Rating 29) PT-OP-H Neuro Start: 11/24/21 08:34 Freq: Status: Active Protocol: Document 11/25/21 16:00 AW (Rec: 11/25/21 17:51 AW [id number]) Sensation Evaluation Gross Sensation Gross Sensation WNL Coordination Evaluation Comments Coordination Comments All coordination testing WNL. Deep Tendon Reflex & Clonus Assessment Deep Tendon Reflex Bilateral Achilles Deep Tendon Reflex 2+ Normal Bilateral Patellar Deep Tendon Reflex 2+ Normal PT-OP-M Strength Start: 11/24/21 08:34 Freq: Status: Active Protocol: Document 11/25/21 16:00 AW (Rec: 11/25/21 17:51 AW [id number]) Hip Strength Hip Manual Muscle Testing bilat Flexion (L2) 5 Normal Extension (S1) 4+ Good+ Abduction 4+ Good+ External Rotation 5 Normal Internal Rotation 5 Normal Knee Strength Knee Manual Muscle Testing Right Flexion (S2) 5 Normal Extension (L3) 4+ Good+ Comments Pt reports right knee pain Left Flexion (S2) 5 Normal Extension (L3) 5 Normal Ankle/Foot Strength Ankle and Foot Manual Muscle Testing bilat Dorsiflexion (L4) 5 Normal Plantarflexion (S1) 5 Normal Inversion 5 Normal Eversion (S1) 5 Normal Toe Strength Toe Manual Muscle Testing Great Toe Flexion 5 Normal Extension 5 Normal PT-OP-O Vestibular Start: 11/24/21 08:34 Freq: Status: Active Protocol: Document 11/25/21 16:00 AW (Rec: 11/25/21 17:51 AW [id number]) Vestibular Assessment Visual Testing Smooth Pursuits Horizontal WNL Smooth Pursuits Vertical WNL Gaze Evoked Nystagmus With Fixation Negative Gaze Evoked Nystagmus Without Fixation Negative Thrust Head Positive Bilateral Cover/Uncover Test WNL Convergence Test WNL Comments Vestibular Comments Positive head thrust bilaterally and pt limited to 50 bpm head turning on gaze stabillization. PT-OP-T Assessment and Plan Start: 11/24/21 08:34 Freq: Status: Active Protocol: Document 01/20/22 13:04 AW (Rec: 01/20/22 14:37 AW [id number]) Physical Therapy Assessment Goals Four Impairment VOR Replenisher Goal (LTG) Pt will demonstrate gaze stabilization with head rotation at a rate of 2 Hz as a measure of improved vestibulo-ocular reflex to improve overall balance. 01/20/22 LTG Duration 8 weeks - 01/20/22 GOAL MET Three Impairment ABC scale Replenisher Goal (LTG) Pt will improve ABC score from 79% to 90% or greater as a measure of improved balance and self-efficacy. LTG Duration 8 weeks - 01/20/22 - Not formally assess but improved per pt report Two Impairment balance Replenisher Goal (LTG) Pt will improve his mCTSIB score to 110 or greater as a measure of improved balance LTG Duration 8 weeks - 01/20/22 GOAL MET One Impairment lacks HEP Short Term Goal (STG) Pt will be instructed in HEP for balance to support therapy services provided in clinic STG Duration 4 weeks - 4/13/22 Halfway Goal (LTG) Pt will be independent [facility] for balance LTG Duration 8 weeks - 01/20/22 GOAL MET Progress Towards Goals Progress Towards Goals Progressing Toward Goals,Goals Met Assessment Summary Assessment Pt manages cognitive load better. Has noticed only minor seizure symtpoms recently - left hand tremor, occasional spaciness. Pt is appropriate to discharge to [facility] at this time to allow focus on speech therapy for cognition, attention. Physical Therapy Plan Frequency and Duration Frequency of Treatment 1x/Week Duration of Treatment 8 weeks Plan of Care Start Date 11/25/21 Plan of Care End Date 01/20/22 Therapeutic Interventions Therapeutic Interventions Balance Training,Coordination Training,Home Exercise Program ,Neuromuscular Re-education, Self-Care/Home Management, Therapeutic Activities, Therapeutic Exercises, Vestibular Rehabilitation Other Referrals/Consults Referrals/Consults Recommended ST starting mid-January Discharge Physical Therapy Discharge Reasons Goals Met Discharge Comments Pt has met all goals including standardizing VOR and mCTSIB testing. Pt has no concerns about discharging therapy.
== END 2022-01-21 10:12 ==
LOC: PHYS 13:00
PROVIDERS: Family Provider Student in an Organized Health Care Education/Training Program; PCP Student in an Organized Health Care Education/Training Program; Referring Provider Student in an Organized Health Care Education/Training Program; Visit Provider Student in an Organized Health Care Education/Training Program
DX: C71.9 Malignant neoplasm of brain, unspecified (principal)
CPT/HCPCS: 97110; 97112; 97162

== ENCOUNTER 2022-04-07 12:30 | Outpatient (RCR) | payer OTHER, SELFPAY ==
--- NOTE | 2022-01-25 17:34 | ST.IPIE ---
Visit Care Team Role Provider Type Sriram Bacon MD Attending Provider Non-Staff Family Provider Primary Care Provider Referring Provider Specialty: Medical Address: [facility], [facility] [address], [place], [address] Email: Current Diagnoses Malignant neoplasm of brain, unspecified (01/27/22) ST IP Initial Evaluation Report [employer] Adult Cognitive Linguistic Eval Start: 01/25/22 15:38 Freq: Status: Active Protocol: Document 01/25/22 15:39 MONTEZ (Rec: 01/25/22 16:00 MONTEZ [id number]) Adult Cognitive Linguistic Evaluation Session Time Visit Start Time 15:30 Visit Stop Time 16:30 Total Visit Minutes 60 Visit Information Visit Number Initial Eval, 09/24 authorized Plan of Care Dates 01/25/22 - 04/02/22 Insurance Information [facility] Referral Referring Provider Dr. Sriram Bacon Reason for Referral Malignant Neoplasm of the Brain Setting Assessment Location Outpatient Care Visit Type Note Type Initial evaluation Next Note Type Next Note Type Treatment Note Patient Information Identification Type Name,Date of Patient History The pt is a 26-yr-old male who contracted COVID-19 in Sep 2021. During the illness, he experienced a febrile seizure and was brought to hospital. 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 Due to COVID+ status, surgery was postponed for ~3 days. Most of the tumor was then removed with the exception of that which was close to the motor cortex, per pt report. The pt is being followed closely with MRI every 3 mos. He is not receiving chemo or radiation at this time. The pt reports that he gets words jumbled up, sometimes using incorrect words, experienced need for increased effort for precise pronunciation, and fatigues more easily than PLOF. His has noted that he frequently does not recall conversations and, as a result, does not always fulfill their agreements. The pt stated that since surgery, he has sometimes experienced mini seizures that interrupt conversations/memory, as he drifts momentarily. These are reducing in frequency. 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 [place] neurologist assessment is pending. He is with two small children. Extended family resides in [place]. PT goals: To be able to work again with his hands, troubleshooting issues. Language(s) Spoken in the [employer] Level 1 semester of college Occupation Status [place] Hearing Hearing Level Normal Vision Comments Occ random blurring in right eye Previous Therapy Previous Speech-Language Therapy No History of Therapy The pt received Physical Therapy at this clinic, now discharged. Subjective Patient Report The pt arrived on time and provided case history supplemental to medical records. Mental Status Alert,Responsive,Cooperative Assessment Oral Motor Examination Completed No Formal Assessment Standardized Test/Screener Type Cognitive Linguistic Quick Test (CLQT) Administration Complete Results The pt scored WNL in all cognitive domains including attention,memory, executive functions, language, visuospatial skills and clock drawing. Scores in memory and language were lowest, nearing Mild Impairment levels (Memory score was 159 with normal being 155-185; language was 31 with normal being 29-37). During the story retelling task, the pt recalled 8/18 details (44% acc), primarily the first and last details. He reported difficulty taking in new information while attempting to retain early details. Memory recognition of same story details was 100%. During the generative naming tasks, the pt named 24 items in a concrete category (animals) vs 11 items in an abstract category (words beginning with M). Mental organization within the concrete category was strong, while no distinct organizational strategy was perceived within the abstract category. During the design generation task, the pt generated 9/13 designs, copying one of the clinician's designs and perseverating once on his designs. He independently recognized the perseverated design. Findings/Results Findings Standardized assessment revealed language and cognitive communication skills to be WNL, with memory and language being weaker than other cognitive domains, consistent with the pt's self- report. Further assessment is recommended, which will include standardized and informal assessment in treatment. Treatment is to focus on Cognitive Communication Deficits Self-awareness of Cognitive- Predictive awareness (able to Communication Deficits predict problem; impact of impairments) Impact on Functioning Activity Limits/Particip.Rest. Sev: Employment Prognosis Prognosis Good Based on Cognitive status,Family support,Duration of symptoms/ severity,Time since onset Plan of Care Speech-Language Treatment Yes Frequency 2x/wk Duration up to 8 wks Patient/Caregiver Education Described results of evaluation,Patient expressed understanding of evaluation, Patient expressed agreement with goals and treatment plans ,Patient requires further education/training Short Term Goals 1. The pt will participate in further assessment to identify strengths and deficits and to guide POC. 2. The pt will participate in development of external memory tools to increase his ability to track and recall functional information to fulfill personal, family, and work responsibilities. 3. Given novel information of moderate length and complexity and using internal memory strategies as needed, the pt will recall main ideas and lopez details with 80% accuracy to improve memory skills necessary for family and work responsibilities. Additional goals to be developed following further assessment Residential Goals 1. Using external and internal memory tools as needed, the pt will track and recall functional information to fulfill personal, family and work responsibilities in 90% of opportunities, as measured by pt/family reports and clinician judgment. Additional goals to be developed following further assessment
--- NOTE | 2022-02-02 17:01 | ST.OPTN ---
Visit Care Team Role Provider Type Sriram Bacon MD Attending Provider Non-Staff Family Provider Primary Care Provider Referring Provider Address: [address], [address] [employer] Treatment Note [employer] Clinical Instructor Line Start: 02/02/22 10:24 Freq: Status: Active Protocol: Document 02/01/22 11:41 MONTEZ (Rec: 02/02/22 11:42 MONTEZ [id number]) Clinical Instructor Signature Clinical Instructor Clinical Instructor Yes [employer] Treatment Note Start: 01/25/22 15:38 Freq: Status: Active Protocol: Document 02/01/22 16:30 EK (Rec: 02/02/22 08:28 EK [id number]) Speech Pathology Treatment Note Session Time Visit Start Time 13:35 Visit Stop Time 14:20 Total Visit Minutes 45 Visit Information Visit Number 3 Authorized Plan of Care Dates 01/25/22 - 04/02/22 Insurance Information [facility] Setting Treatment Setting Outpatient Care Visit Type Note Type Treatment Note Next Note Type Next Note Type Treatment Note General Information Patient History The pt is a 26-yr-old male who contracted COVID-19 in Sep 2021. During the illness, he experienced a febrile seizure and was brought to hospital. 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 Due to COVID+ status, surgery was postponed for ~3 days. Most of the tumor was removed with the exception of that which was close to the motor cortex, per pt report. The pt is being followed closely with MRI every 3 mos. He is not receiving chemo or radiation at this time. The pt reports that he gets words jumbled up, sometimes using incorrect words, experienced need for increased effort for precise pronunciation, and fatigues more easily than PLOF. His has noted that he frequently does not recall conversations and, as a result , does not always fulfill their agreements. The pt stated that since surgery, he has sometimes experienced mini seizures that interrupt conversations/memory, as he drifts momentarily. These are reducing in frequency. 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 [place] neurologist assessment is pending. He is with two small children. Extended family resides in [place]. PT goals: To be able to work again with his hands, troubleshooting issues. Subjective Identification Type Name Others Present Additional Therapist Observations/Patient Presentation Although pt arrived on time, session started 5 minutes late d/t pt not checking in at the front office attendant upon arrival. Pt reported that he has a upcoming neuro-psych appointment. Session conducted and note written by student [employer] Milagros Yousif. Chief Complaint(s) Language,Cognitive Patient Knowledge/Awareness of [employer] Role Good in Treatment Parent/Caretake Knowledge/Awareness of Good [employer] Role in Treatment Objective Short Term Goals 1. The pt will participate in further assessment to identify strengths and deficits and to guide POC. 2. The pt will participate in development of external memory tools to increase his ability to track and recall functional information to fulfill personal, family, and work responsibilities. 3. Given novel information of moderate length and complexity and using internal memory strategies as needed, the pt will recall main ideas and lopez details with 80% accuracy to improve memory skills necessary for family and work responsibilities. Additional goals to be developed following further assessment Half-Way Goals 1. Using external and internal memory tools as needed, the pt will track and recall functional information to fulfill personal, family and work responsibilities in 90% of opportunities, as measured by pt/family reports and clinician judgment. Additional goals to be developed following further assessment Treatment Activities Informal probing was conducted in order to fully assess pt's needs at this time. Pt reported that on occassion, his words become jumbled up when talking to his and she has to guess his target message. He noted that while he hasn't had this occur at his new job, it may happen as work duty and stress increase. Pt reported that multi- tasking decreases his ability to remember what he is told and causes intense headaches when he attempts to multi-task for too long. Pt stated that his family has implemented a calendar system as an external memory tool. When his asks him to complete a task, pt reported that he has found success with repeating the task in his mind until he completes the task (which may not be a sustainable strategy long-term). Pt education was provided RE the different levels of attention and how his attention likely has been impacted by his tumor/surgery. As part of HEP, pt was instructed to be mindful of the different levels of attention he needs to utilize and which level/what distractions cause him the most difficulty. Targeted WFD by instructing the pt to explain various idioms, he defined familiar idioms with 100% accuracy. Provided pt education RE deductive reasoning and provided HEP task to target this skill. During the session, pt required min. cueing to complete a deductive reasoning task. Assessment Patient Response to Treatment Good Rehab Potential Excellent Impairments Identified Expressive language,Cognitive communication Assessment of Improvement When education was provided RE attention and deductive reasoning, pt appeared to be more interested in completing therapy tasks. Pt independently articulated well all of the presented idioms and required min cueing in order to complete deductive reasoning task. Reviewed with Patient Goals,Progress Being Made,Home Exercise Program Patient/Caregiver Understanding Good Plan Amount of Therapy Recommended 2 Months Frequency of Treatment Once a Week Length of Session 45 Minutes Therapeutic Contents Client Education,Cognitive- Linguistic Training,Home Exercise Program Provided Patient/Caregiver Instruction Home Exercise Program,Plan of Care,Questions/Concerns Therapy Recommendations Continue with Current Program
--- NOTE | 2022-02-03 18:21 | ST.OPTN ---
Visit Care Team Role Provider Type Sriram Bacon MD Attending Provider Non-Staff Family Provider Primary Care Provider Referring Provider Address: [facility], [address] [place] [address], [id number] GAMER Treatment Note GAMER Clinical Instructor Line Start: 02/02/22 10:24 Freq: Status: Active Protocol: Document 02/01/22 11:41 MONTEZ (Rec: 02/02/22 11:42 MONTEZ [id number]) Clinical Instructor Signature Clinical Instructor Clinical Instructor Yes GAMER Treatment Note Start: 01/25/22 15:38 Freq: Status: Active Protocol: Document 02/03/22 18:03 MONTEZ (Rec: 02/03/22 18:21 MONTEZ [id number]) Speech Pathology Treatment Note Session Time Visit Start Time 14:30 Visit Stop Time 15:15 Total Visit Minutes 45 Visit Information Visit Number 4/ Authorized Plan of Care Dates 01/25/22 - 04/02/22 Insurance Information [facility] Setting Treatment Setting Outpatient Care Visit Type Note Type Treatment Note Next Note Type Next Note Type Treatment Note General Information Patient History The pt is a 26-yr-old male who contracted COVID-19 in Sep 2021. During the illness, he experienced a febrile seizure and was brought to hospital. 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 Due to COVID+ status, surgery was postponed for ~3 days. Most of the tumor was removed with the exception of that which was close to the motor cortex, per pt report. The pt is being followed closely with MRI every 3 mos. He is not receiving chemo or radiation at this time. The pt reports that he gets words jumbled up, sometimes using incorrect words, experienced need for increased effort for precise pronunciation, and fatigues more easily than PLOF. His has noted that he frequently does not recall conversations and, as a result , does not always fulfill their agreements. The pt stated that since surgery, he has sometimes experienced mini seizures that interrupt conversations/memory, as he drifts momentarily. These are reducing in frequency. 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 [place] neurologist assessment is pending. He is with two small children. Extended family resides in [place]. PT goals: To be able to work again with his hands, troubleshooting issues. Subjective Identification Type Name Others Present Additional Therapist Observations/Patient Presentation Although pt arrived on time with homework that was completed with 100% acc. Pt reported having completed deductive reasoning tasks in the midst of multiple auditory and visual distractions, all of which he was able to ignore with the exception of conversation from his . Chief Complaint(s) Language,Cognitive Patient Knowledge/Awareness of GAMER Role Good in Treatment Parent/Caretake Knowledge/Awareness of Good GAMER Role in Treatment Patient/Caregiver Compliance with Home Excellent Exercise Program Objective Short Term Goals 1. The pt will participate in further assessment to identify strengths and deficits and to guide POC. 2. The pt will participate in development of external memory tools to increase his ability to track and recall functional information to fulfill personal, family, and work responsibilities. 3. Given novel information of moderate length and complexity and using internal memory strategies as needed, the pt will recall main ideas and lopez details with 80% accuracy to improve memory skills necessary for family and work responsibilities. Additional goals to be developed following further assessment Mcfp Goals 1. Using external and internal memory tools as needed, the pt will track and recall functional information to fulfill personal, family and work responsibilities in 90% of opportunities, as measured by pt/family reports and clinician judgment. Additional goals to be developed following further assessment Treatment Activities Education was provided RE components of and relationships between cognitive skills including attention, encoding of information, memory recall, and executive functions. Targeted active listening skills to increase attention and recall of important details in conversations. The pt reported practicing several of these skills already and was receptive to increasing efforts in this. Also educated pt on principles of neuroplasticity. The pt reported little to no cognitive challenge in his job and identified functional acitities that do provide cognitive stimulation as learning to parent an infanct and toddler, playing golf and video games, the latter of which he has not played in a long time but anticipates resuming in the coming weeks as his family will be traveling out of state. Skilled feedback was provided, and the pt was encouraged to look for opportunities for significant and meaningful cognitive stimulation to support neuroplasticity. Examples were provided. Pt verbalized understanding and agreement. The pt described in length and with extensive detail aspects of an anticipated job opportunity with continuous expression of thought for ~5 min without evidence of processing skill deficits or WFDs. Assessment Patient Response to Treatment Good Rehab Potential Excellent Impairments Identified Expressive language,Cognitive communication Assessment of Improvement The pt completed deductive reasoning tasks well, demonstrating strong focused and selective attention skills . He found it difficult to effectively attend to both a conversation and the reasoning tasks simultaneously (divided attn); however, it was pragmatically appropriate for him to abandon the task to converse with his . He reports no difficulty managing conversations simultaneously with activities such as playing video games. Will continue to assess and treat as indicated. The pt has limited cognitive stimulation in his current job responsibilities; moreso in his home life. He was receptive to education and recommendations for increasing stimulation with enjoyable and new, if possible, activities. Excellent expressive language skills were exhibited in monologue of moderate length RE topic of high interest and knowledge. No incorrect vocabulary or WFDs noted. Reviewed with Patient Goals,Progress Being Made,Home Exercise Program Patient/Caregiver Understanding Good Plan Amount of Therapy Recommended 2 Months Frequency of Treatment Once a Week Length of Session 45 Minutes Therapeutic Contents Client Education,Cognitive- Linguistic Training,Home Exercise Program Provided Patient/Caregiver Instruction Home Exercise Program,Plan of Care,Questions/Concerns Therapy Recommendations Continue with Current Program
--- NOTE | 2022-02-10 17:29 | ST.OPTN ---
Visit Care Team Role Provider Type Sriram Bacon MD Attending Provider Non-Staff Family Provider Primary Care Provider Referring Provider Address: [facility], [address] [place] [address], [id number] RESEARCH MANAGER Treatment Note RESEARCH MANAGER Clinical Instructor Line Start: 02/02/22 10:24 Freq: Status: Active Protocol: Document 02/01/22 11:41 MONTEZ (Rec: 02/02/22 11:42 MONTEZ [id number]) Clinical Instructor Signature Clinical Instructor Clinical Instructor Yes RESEARCH MANAGER Treatment Note Start: 01/25/22 15:38 Freq: Status: Active Protocol: Document 02/10/22 16:34 MONTEZ (Rec: 02/10/22 16:42 MONTEZ [id number]) Speech Pathology Treatment Note Session Time Visit Start Time 10:30 Visit Stop Time 11:15 Total Visit Minutes 45 Visit Information Visit Number 01/22 Authorized Plan of Care Dates 01/25/22 - 04/02/22 Insurance Information [facility] Setting Treatment Setting Outpatient Care Visit Type Note Type Treatment Note Next Note Type Next Note Type Treatment Note General Information Patient History The pt is a 26-yr-old male who contracted COVID-19 in Sep 2021. During the illness, he experienced a febrile seizure and was brought to hospital. 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 Due to COVID+ status, surgery was postponed for ~3 days. Most of the tumor was removed with the exception of that which was close to the motor cortex, per pt report. The pt is being followed closely with MRI every 3 mos. He is not receiving chemo or radiation at this time. The pt reports that he gets words jumbled up, sometimes using incorrect words, experienced need for increased effort for precise pronunciation, and fatigues more easily than PLOF. His has noted that he frequently does not recall conversations and, as a result , does not always fulfill their agreements. The pt stated that since surgery, he has sometimes experienced mini seizures that interrupt conversations/memory, as he drifts momentarily. These are reducing in frequency. 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 [place] neurologist assessment is pending. He is with two small children. Extended family resides in [place]. PT goals: To be able to work again with his hands, troubleshooting issues. Subjective Identification Type Name Others Present Student Observations/Patient Presentation The pt arrived on time. He reported having worked a full day and feeling very tired after. Tasks included scanning and pulling files, which he felt was tedious. He took breaks as needed and successfully completed the work. Chief Complaint(s) Cognitive Patient Knowledge/Awareness of RESEARCH MANAGER Role Good in Treatment Parent/Caretake Knowledge/Awareness of Good RESEARCH MANAGER Role in Treatment Patient/Caregiver Compliance with Home Excellent Exercise Program Objective Short Term Goals 1. The pt will participate in development of external memory tools to increase his ability to track and recall functional information to fulfill personal, family, and work responsibilities. 2. Given novel information of moderate length and complexity and using internal memory strategies as needed, the pt will recall main ideas and lopez details with 80% accuracy to improve memory skills necessary for family and work responsibilities. Custodial Goals 1. Using external and internal memory tools as needed, the pt will track and recall functional information to fulfill personal, family and work responsibilities in 90% of opportunities, as measured by pt/family reports and clinician judgment. Treatment Activities Education provided RE relationship between cognitive exertion and fatigue. Continued education RE internal memory strategies provided orally and in writing . The pt verbalized understanding and identified ways in which he applies internal strategies to recall information. Assessment Patient Response to Treatment Good Rehab Potential Excellent Impairments Identified Expressive language,Cognitive communication Assessment of Improvement The pt was receptive to all education provided today and participatory in identifying functional tasks with which they could be used. Discussed POC and agreed to continue with training x2 sessions for additional training of strategies and discharge thereafter. Reviewed with Patient Goals,Progress Being Made,Home Exercise Program Patient/Caregiver Understanding Good Plan Amount of Therapy Recommended 2 Months Frequency of Treatment Once a Week Length of Session 45 Minutes Therapeutic Contents Client Education,Cognitive- Linguistic Training,Home Exercise Program Provided Patient/Caregiver Instruction Home Exercise Program,Plan of Care,Questions/Concerns Therapy Recommendations Continue with Current Program
--- NOTE | 2022-02-15 17:40 | ST.OPTN ---
Visit Care Team Role Provider Type Sriram Bacon MD Attending Provider Non-Staff Family Provider Primary Care Provider Referring Provider Address: [facility], [address] [place] [address], [id number] SALT MINER Treatment Note SALT MINER Clinical Instructor Line Start: 02/02/22 10:24 Freq: Status: Active Protocol: Document 02/01/22 11:41 MONTEZ (Rec: 02/02/22 11:42 MONTEZ [id number]) Clinical Instructor Signature Clinical Instructor Clinical Instructor Yes SALT MINER Treatment Note Start: 01/25/22 15:38 Freq: Status: Active Protocol: Document 02/15/22 17:29 MONTEZ (Rec: 02/15/22 17:40 MONTEZ [id number]) Speech Pathology Treatment Note Session Time Visit Start Time 09:30 Visit Stop Time 10:15 Total Visit Minutes 45 Visit Information Visit Number 02/22 Authorized Plan of Care Dates 01/25/22 - 04/02/22 Insurance Information [facility] Setting Treatment Setting Outpatient Care Visit Type Note Type Treatment Note Next Note Type Next Note Type Treatment Note General Information Patient History The pt is a 26-yr-old male who contracted COVID-19 in Sep 2021. During the illness, he experienced a febrile seizure and was brought to hospital. 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 Due to COVID+ status, surgery was postponed for ~3 days. Most of the tumor was removed with the exception of that which was close to the motor cortex, per pt report. The pt is being followed closely with MRI every 3 mos. He is not receiving chemo or radiation at this time. The pt reports that he gets words jumbled up, sometimes using incorrect words, experienced need for increased effort for precise pronunciation, and fatigues more easily than PLOF. His has noted that he frequently does not recall conversations and, as a result , does not always fulfill their agreements. The pt stated that since surgery, he has sometimes experienced mini seizures that interrupt conversations/memory, as he drifts momentarily. These are reducing in frequency. 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 [place] neurologist assessment is pending. He is with two small children. Extended family resides in [place]. PT goals: To be able to work again with his hands, troubleshooting issues. Subjective Identification Type Name Others Present Student Observations/Patient Presentation The pt arrived on time. He reported having [place] the [place], taking special care to drive at or under the speed limit and monitor his ability to perform appropriately. 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 He reported feeling confident with the trip but tired afterward. Chief Complaint(s) Cognitive Patient Knowledge/Awareness of SALT MINER Role Good in Treatment Parent/Caretake Knowledge/Awareness of Good SALT MINER Role in Treatment Patient/Caregiver Compliance with Home Excellent Exercise Program Objective Short Term Goals 1. The pt will participate in development of external memory tools to increase his ability to track and recall functional information to fulfill personal, family, and work responsibilities. 2. Given novel information of moderate length and complexity and using internal memory strategies as needed, the pt will recall main ideas and lopez details with 80% accuracy to improve memory skills necessary for family and work responsibilities. Traffic Safety Administrator Goals 1. Using external and internal memory tools as needed, the pt will track and recall functional information to fulfill personal, family and work responsibilities in 90% of opportunities, as measured by pt/family reports and clinician judgment. Treatment Activities Continued training internal memory strategies and skills targeting visualization and dual motor and cognitive tasks . Using visualization strategies, the pt demonstrated 100% immediate recall of picture items and, with need of one verbal prompt , 100% delayed recall. The pt completed tasks requiring dual attention to a physical activity and a sorting/sequencing task while completing mental manipulation tasks. He completed mental manipulation tasks with Fo3 with 92% acc while completing other tasks simultaneously at consistent rates. When the task was increased to Fo4 items, accuracy declined to 81 % with need for the pt to pause the motor task periodically. The pt completed N-back tasks: 1-back with 100% acc and 2- back with 89% acc. Assessment Patient Response to Treatment Good Rehab Potential Excellent Impairments Identified Expressive language,Cognitive communication Assessment of Improvement The pt performed all tasks today within normal or functional levels. Decrease in accuracy and need to isolate tasks occurred when mental manipulation task was increased from 3 to 4 items. The pt demonstrated improved accuracy and speed with N-back task with practice. Reviewed with Patient Goals,Progress Being Made,Home Exercise Program Patient/Caregiver Understanding Good Plan Amount of Therapy Recommended 2 Months Frequency of Treatment Once a Week Length of Session 45 Minutes Therapeutic Contents Client Education,Cognitive- Linguistic Training,Home Exercise Program Provided Patient/Caregiver Instruction Home Exercise Program,Plan of Care,Questions/Concerns Therapy Recommendations Continue with Current Program
--- NOTE | 2022-02-17 17:39 | ST.OPTN ---
Visit Care Team Role Provider Type Sriram Bacon MD Attending Provider Non-Staff Family Provider Primary Care Provider Referring Provider Address: [facility], [address] [place] [address], [id number] HEADER DOCK Treatment Note HEADER DOCK Clinical Instructor Line Start: 02/02/22 10:24 Freq: Status: Active Protocol: Document 02/01/22 11:41 MONTEZ (Rec: 02/02/22 11:42 MONTEZ [id number]) Clinical Instructor Signature Clinical Instructor Clinical Instructor Yes HEADER DOCK Treatment Note Start: 01/25/22 15:38 Freq: Status: Active Protocol: Document 02/17/22 17:22 MONTEZ (Rec: 02/17/22 17:36 MONTEZ [id number]) Speech Pathology Treatment Note Session Time Visit Start Time 09:50 Visit Stop Time 10:25 Total Visit Minutes 35 Visit Information Visit Number 03/24 Authorized Plan of Care Dates 01/25/22 - 04/02/22 Insurance Information [facility] Setting Treatment Setting Outpatient Care Visit Type Note Type Treatment Note Next Note Type Next Note Type Treatment Note General Information Patient History The pt is a 26-yr-old male who contracted COVID-19 in Sep 2021. During the illness, he experienced a febrile seizure and was brought to hospital. 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 Due to COVID+ status, surgery was postponed for ~3 days. Most of the tumor was removed with the exception of that which was close to the motor cortex, per pt report. The pt is being followed closely with MRI every 3 mos. He is not receiving chemo or radiation at this time. The pt reports that he gets words jumbled up, sometimes using incorrect words, experienced need for increased effort for precise pronunciation, and fatigues more easily than PLOF. His has noted that he frequently does not recall conversations and, as a result , does not always fulfill their agreements. The pt stated that since surgery, he has sometimes experienced mini seizures that interrupt conversations/memory, as he drifts momentarily. These are reducing in frequency. 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 [place] neurologist assessment is pending. He is with two small children. Extended family resides in [place]. PT goals: To be able to work again with his hands, troubleshooting issues. Subjective Identification Type Name Others Present Student Observations/Patient Presentation The pt arrived late d/t traffic congestion. He reported having been very tired after the last session and recognizing how much he had worked my brain. He reported being relieved of any significant duties at work in order to take it easy. He also reported a plan to keep his brain engaged and challenged, which included tasks such as playing golf and tracking scores; playing complex video games while conversing with other players; and reading complex books he obtained from the library. Chief Complaint(s) Cognitive Patient Knowledge/Awareness of HEADER DOCK Role Good in Treatment Parent/Caretake Knowledge/Awareness of Good HEADER DOCK Role in Treatment Patient/Caregiver Compliance with Home Excellent Exercise Program Objective Short Term Goals 1. The pt will participate in development of external memory tools to increase his ability to track and recall functional information to fulfill personal, family, and work responsibilities. 2. Given novel information of moderate length and complexity and using internal memory strategies as needed, the pt will recall main ideas and lopez details with 80% accuracy to improve memory skills necessary for family and work responsibilities. 3. 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 Using external and internal memory tools as needed, the pt will track and recall functional information to fulfill personal, family and work responsibilities in 90% of opportunities, as measured by pt/family reports and clinician judgment. 2. 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 Treatment Activities Education and skilled feedback was provided in response to the pt's reports, stated above . Discussed neuroplasticity and the counterproductive approach to simply resting his brain and taking it easy for recovery. 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 He identified additional tasks and reading content that he could incorporate to build stamina and skills needed to return to work. The pt completed dual motor/ cognitive tasks by completing tangram arrangements while listing items in abstract categories and stating similarities/differences between object pairs. Accuracy of tasks was high (>90%) but the pt's ability to perform tasks simultaneously was intermittently interrupted while considering answers to cognitive items. He reported that this was a good representation of the challenge he has in functional tasks, such as monitoring his children or having short conversations with his while watching a movie. Skilled feedback was provided. The pt requested to continue skilled intervention with reduced frequency as he attempts to establish and commit to his HEP. Agreed to 1 visit every 2-3 wks. Assessment Patient Response to Treatment Good Rehab Potential Excellent Impairments Identified Expressive language,Cognitive communication Progress Towards Goals Excellent Progress Assessment of Overall Progress Improving Assessment of Improvement The pt is making excellent progress toward goals with increased awareness of both his deficits and ways of improving his skills. 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 This demonstrates ownership of his recovery and significantly improves prognosis. Reviewed with Patient Goals,Progress Being Made,Home Exercise Program Patient/Caregiver Understanding Good Plan Amount of Therapy Recommended 2 Months Frequency of Treatment Once a Week Length of Session 45 Minutes Therapeutic Contents Client Education,Cognitive- Linguistic Training,Home Exercise Program Provided Patient/Caregiver Instruction Home Exercise Program,Plan of Care,Questions/Concerns Therapy Recommendations Continue with Current Program
--- NOTE | 2022-03-24 14:59 | ST.OPTN ---
Visit Care Team Role Provider Type Sriram Bacon MD Attending Provider Non-Staff Family Provider Primary Care Provider Referring Provider Address: [facility], [address] [place] [address], [id number] STOGY ROLLER Treatment Note STOGY ROLLER Clinical Instructor Line Start: 02/02/22 10:24 Freq: Status: Active Protocol: Document 02/01/22 11:41 MONTEZ (Rec: 02/02/22 11:42 MONTEZ [id number]) Clinical Instructor Signature Clinical Instructor Clinical Instructor Yes STOGY ROLLER Treatment Note Start: 01/25/22 15:38 Freq: Status: Active Protocol: Document 03/24/22 12:46 MONTEZ (Rec: 03/24/22 13:18 MONTEZ [id number]) Speech Pathology Treatment Note Session Time Visit Start Time 09:30 Visit Stop Time 10:20 Total Visit Minutes 50 Visit Information Visit Number 04/[id number] Authorized Plan of Care Dates 01/25/22 - 04/02/22 Insurance Information [facility] Setting Treatment Setting Outpatient Care Visit Type Note Type Treatment Note Next Note Type Next Note Type Treatment Note General Information Patient History The pt is a 26-yr-old male who contracted COVID-19 in Sep 2021. During the illness, he experienced a febrile seizure and was brought to hospital. 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 Due to COVID+ status, surgery was postponed for ~3 days. Most of the tumor was removed with the exception of that which was close to the motor cortex, per pt report. The pt is being followed closely with MRI every 3 mos. He is not receiving chemo or radiation at this time. The pt reports that he gets words jumbled up, sometimes using incorrect words, experienced need for increased effort for precise pronunciation, and fatigues more easily than PLOF. His has noted that he frequently does not recall conversations and, as a result , does not always fulfill their agreements. The pt stated that since surgery, he has sometimes experienced mini seizures that interrupt conversations/memory, as he drifts momentarily. These are reducing in frequency. 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 [place] neurologist assessment is pending. He is with two small children. Extended family resides in [place]. PT goals: To be able to work again with his hands, troubleshooting issues. Subjective Identification Type Name Others Present Student Observations/Patient Presentation The pt arrived on time with a copy of the report from neuropsychological testing administered by Rajani Jones, Ph.D., ABPP/CN on 02/23/22. Impairments were found in areas of visual memory, complex attention, and executive function for organization, learning and memory. The pt's recall of word lists and verbal communication skills tested at or above average. The pt underwent EEG yesterday, which did not elicit seizure activity or reveal significant findings. Since last session he has also had other brain imaging that indicated the brain tumor is growing again, and either the tumor or scar tissue appears to be impacting the motor cortex. Prognosis was given of likely 5 yrs of quality life and up to 10 yrs of life. The pt is scheduled for a second opinion with an Oncologist in [place], [place], at [facility] on . Chief Complaint(s) Cognitive Patient Knowledge/Awareness of STOGY ROLLER Role Good in Treatment Parent/Caretake Knowledge/Awareness of Good STOGY ROLLER Role in Treatment Patient/Caregiver Compliance with Home Excellent Exercise Program Objective Short Term Goals 1. The pt will participate in development of external memory tools to increase his ability to track and recall functional information to fulfill personal, family, and work responsibilities. 2. Given novel information of moderate length and complexity and using internal memory strategies as needed, the pt will recall main ideas and lopez details with 80% accuracy to improve memory skills necessary for family and work responsibilities. 3. 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 Penitentiary Goals 1. Using external and internal memory tools as needed, the pt will track and recall functional information to fulfill personal, family and work responsibilities in 90% of opportunities, as measured by pt/family reports and clinician judgment. 2. 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 Treatment Activities Consulted with the pt RE the above findings. Discussed ST POC. Recommended targeting both exercises targeting areas of impairment identified by recent testing as well as education and long-term planning of potential cognitive decline over the course of disease progression. The pt was in agreement with this. Trained pt in use of [email or web address] cognitive training amelia, which is recommended d/t extensive research behind each task. The pt completed a Stroop Test-like task with ~65% accuracy with decline in accuracy occurring with increased rate of stimulus presentation speed. Educated pt on other recommended activities within the amelia, and recommended increasing metacognition by noting the strategies he uses to accomplish tasks in order to carry these over to functional activities. Pt verbalized understanding; needs reinforcement. Agreed to build HEP with additional tasks targeting organizational thought, visual memory, and attention and provide to pt at next session. Will also provide information in writing related to STOGY ROLLER services over course of disease progression. Assessment Patient Response to Treatment Good Rehab Potential Excellent Impairments Identified Expressive language,Cognitive communication Progress Towards Goals Excellent Progress Assessment of Overall Progress Improving Assessment of Improvement Unfortunately it appears from the pt's reports of brain imaging findings that remnants of the tumor are growing and may be impacting the pt's motor cortex. Given the projected timeline of disease progression, continued skilled STOGY ROLLER intervention is medically necessary to both improve the pt's current functions and establish long- term POC including education, strategy training, and environmental adaptations/ supports to assist with cognitive communication changes over the course of disease progression. The pt was stimulable to dual attention Stroop Test-like task and receptive to education and recommendations of additional tasks using [email or web address] cognitive training amelia. The pt's accuracy in this task declined with increased speed of stimulus presentation , indicating this is an appropriate task to target visual recognition, dual attention, and processing speeds. Findings from neuropsychological testing indicate strengths in areas of verbal communication and recall, indicating benefit from verbal memory training provided in ST POC. Treatment will continue to target visual memory, complex attention, and executive functions. Reviewed with Patient Goals,Progress Being Made,Home Exercise Program Patient/Caregiver Understanding Good Plan Amount of Therapy Recommended 2 Months Frequency of Treatment Once a Week Length of Session 45 Minutes Treatment Emphasis Next Session HEP development, long-term POC Therapeutic Contents Client Education,Cognitive- Linguistic Training,Home Exercise Program Provided Patient/Caregiver Instruction Home Exercise Program,Plan of Care,Questions/Concerns Therapy Recommendations Continue with Current Program
--- NOTE | 2022-04-07 17:45 | ST.OPTN ---
Visit Care Team Role Provider Type Sriram Bacon MD Attending Provider Non-Staff Family Provider Primary Care Provider Referring Provider Address: [facility], [address] [place] [address], [id number] ASPHALT TAMPER Treatment Note ASPHALT TAMPER Clinical Instructor Line Start: 02/02/22 10:24 Freq: Status: Active Protocol: Document 02/01/22 11:41 MONTEZ (Rec: 02/02/22 11:42 MONTEZ [id number]) Clinical Instructor Signature Clinical Instructor Clinical Instructor Yes ASPHALT TAMPER Treatment Note Start: 01/25/22 15:38 Freq: Status: Active Protocol: Document 04/07/22 17:25 MONTEZ (Rec: 04/07/22 17:38 MONTEZ [id number]) Speech Pathology Treatment Note Session Time Visit Start Time 12:30 Visit Stop Time 13:15 Total Visit Minutes 45 Visit Information Visit Number 09/29 Authorized Plan of Care Dates 04/08/22 - 06/01/22 Insurance Information [facility] Setting Treatment Setting Outpatient Care Visit Type Note Type Progress Note Next Note Type Next Note Type Treatment Note General Information Patient History The pt is a 26-yr-old male who contracted COVID-19 in Sep 2021. During the illness, he experienced a febrile seizure and was brought to hospital. 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 Due to COVID+ status, surgery was postponed for ~3 days. Most of the tumor was removed with the exception of that which was close to the motor cortex, per pt report. The pt is being followed closely with MRI every 3 mos. He is not receiving chemo or radiation at this time. The pt reports that he gets words jumbled up, sometimes using incorrect words, experienced need for increased effort for precise pronunciation, and fatigues more easily than PLOF. His has noted that he frequently does not recall conversations and, as a result , does not always fulfill their agreements. The pt stated that since surgery, he has sometimes experienced mini seizures that interrupt conversations/memory, as he drifts momentarily. These are reducing in frequency. 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 [place] neurologist assessment is pending. He is with two small children. Extended family resides in [place]. PT goals: To be able to work again with his hands, troubleshooting issues. Subjective Identification Type Name Others Present Student Observations/Patient Presentation The pt arrived on time. No new complaints. Due to a busy schedule related to recent travel, he reported poor compliance with HEP since last session. He reported feeling good about his attention and communication skills in a variety of personal and professional conversations. Chief Complaint(s) Cognitive Patient Knowledge/Awareness of ASPHALT TAMPER Role Good in Treatment Parent/Caretake Knowledge/Awareness of Good ASPHALT TAMPER Role in Treatment Patient/Caregiver Compliance with Home Excellent Exercise Program Objective Short Term Goals 1. The pt will participate in development of external memory tools to increase his ability to track and recall functional information to fulfill personal, family, and work responsibilities. GOAL MET 2. Given novel information of moderate length and complexity and using internal memory strategies as needed, the pt will recall main ideas and lopez details with 80% accuracy to improve memory skills necessary for family and work responsibilities. GOAL MET 3. 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 MAKING PROGRESS; CONTINUE GOAL [place] Goals 1. Using external and internal memory tools as needed, the pt will track and recall functional information to fulfill personal, family and work responsibilities in 90% of opportunities, as measured by pt/family reports and clinician judgment. MAKING PROGRESS; CONTINUE GOAL 2. 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 MAKING PROGRESS; CONTINUE GOAL Treatment Activities Continued to build pt's HEP packet with tasks targeting numeric and deductive reasoning. Instructions were provided in writing and orally . The pt completed the following tasks: Numeric pattern sequences: 100 % acc independently with one self-correction. Verbal analogies: 80% acc, min -mod prompts. Trained pt in Sudoku and Break the Code deductive reasoning tasks using numeric and color stimuli respectively. Pt demonstrated 83% acc with Sudoku and ~68% acc with Break the Code. He did demonstrate improvement with repetition and increased learning of each task. Apps that provide opportunities for similar activities was provided for variety of practice. Assessment Patient Response to Treatment Good Rehab Potential Excellent Impairments Identified Expressive language,Cognitive communication Progress Towards Goals Excellent Progress Assessment of Overall Progress Improving Assessment of Improvement The pt was responsive to training of reasoning tasks that demand sustained, selective and occasionally divided attention. Accuracy was generally high but mildly decreased with increase in complexity of tasks, making these excellent targets for home practice. Over the course of treatment, he has demonstrated excellent motivation and application of treatment targets within his functional activities. Deficits is higher order attention skills continue to interfere with the pt's ability to perform tasks in the presence of distractions and/or to focus well on more than one thing at a time. Reviewed with Patient Goals,Progress Being Made,Home Exercise Program Patient/Caregiver Understanding Good Plan Comment F/U x1, anticipate d/c thereafter Length of Session 45 Minutes Treatment Emphasis Next Session Cont HEP development, long- term POC Therapeutic Contents Client Education,Cognitive- Linguistic Training,Home Exercise Program Provided Patient/Caregiver Instruction Home Exercise Program,Plan of Care,Questions/Concerns Therapy Recommendations Continue with Current Program
--- NOTE | 2022-04-21 17:03 | ST.OPDS ---
Visit Care Team Role Provider Type Sriram Bacon MD Attending Provider Non-Staff Family Provider Primary Care Provider Referring Provider Address: [facility], [address] [place] [address], [address] MARKET DEVELOPMENT ANALYST Treatment Note MARKET DEVELOPMENT ANALYST Clinical Instructor Line Start: 02/02/22 10:24 Freq: Status: Active Protocol: Document 02/01/22 11:41 MONTEZ (Rec: 02/02/22 11:42 MONTEZ [id number]) Clinical Instructor Signature Clinical Instructor Clinical Instructor Yes MARKET DEVELOPMENT ANALYST Treatment Note Start: 01/25/22 15:38 Freq: Status: Active Protocol: Document 04/21/22 17:00 LNK (Rec: 04/21/22 17:03 LNK [id number]) Speech Pathology Treatment Note Setting Treatment Setting Outpatient Care Visit Type Note Type Discharge Summary General Information Patient History The pt is a 26-yr-old male who contracted COVID-19 in Sep 2021. During the illness, he experienced a febrile seizure and was brought to hospital. 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 Due to COVID+ status, surgery was postponed for ~3 days. Most of the tumor was removed with the exception of that which was close to the motor cortex, per pt report. The pt is being followed closely with MRI every 3 mos. He is not receiving chemo or radiation at this time. The pt reports that he gets words jumbled up, sometimes using incorrect words, experienced need for increased effort for precise pronunciation, and fatigues more easily than PLOF. His has noted that he frequently does not recall conversations and, as a result , does not always fulfill their agreements. The pt stated that since surgery, he has sometimes experienced mini seizures that interrupt conversations/memory, as he drifts momentarily. These are reducing in frequency. 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 [employer] neurologist assessment is pending. He is with two small children. Extended family resides in [place]. PT goals: To be able to work again with his hands, troubleshooting issues. Objective Short Term Goals 1. The pt will participate in development of external memory tools to increase his ability to track and recall functional information to fulfill personal, family, and work responsibilities. GOAL MET 2. Given novel information of moderate length and complexity and using internal memory strategies as needed, the pt will recall main ideas and lopez details with 80% accuracy to improve memory skills necessary for family and work responsibilities. GOAL MET 3. 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 MAKING PROGRESS; CONTINUE GOAL Penitentiary Goals 1. Using external and internal memory tools as needed, the pt will track and recall functional information to fulfill personal, family and work responsibilities in 90% of opportunities, as measured by pt/family reports and clinician judgment. MAKING PROGRESS; CONTINUE GOAL 2. 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 MAKING PROGRESS; CONTINUE GOAL Assessment Assessment of Improvement Pt has not been seen for therapy since 04/07/22. He cancelled last appointment on 04/14/22. No new appointments are scheduled Plan Amount of Therapy Recommended No Further Therapy Frequency of Treatment No Further Therapy Therapy Recommendations Discharge from Speech Therapy
== END 2022-04-28 12:56 ==
LOC: SP 12:30
PROVIDERS: Family Provider Student in an Organized Health Care Education/Training Program; PCP Student in an Organized Health Care Education/Training Program; Referring Provider Student in an Organized Health Care Education/Training Program; Visit Provider Student in an Organized Health Care Education/Training Program
DX: C71.9 Malignant neoplasm of brain, unspecified (principal)
CPT/HCPCS: 92507; 92523